=== PATIENT | female | born 1990 | race Caucasian/White ===

== ENCOUNTER 2017-12-15 11:06 | Emergency (ER) | payer OTHER, MEDICAID, SELFPAY ==
[2017-12-15 11:18] VITALS: BP 122/80; PULSE 66; RESP 15; TEMP 36.7; O2SAT 100; BMI 24.3
[2017-12-15 11:55] LABS: Bacteria Urine Many (>30); Squamous Epithelial Cell Urine 1-5 /HPF; WBC Urine 1-5/HPF (0-5/HPF)
[2017-12-15 11:56] LABS: Culture Indicated Urine Specimen Cultured
[2017-12-15 12:26] LABS: Add Manual Diff / Slide Review NO; Eosinophils Percent Auto 2.5 % (2-4); Hematocrit 38.4 % (36-46); Hemoglobin 13.1 g/dL (12.0-16.0); Lymphocytes Percent Auto 30.2 % (25-40); Mean Corpuscular Hemoglobin 29.7 PG (26-34); Mean Corpuscular Volume 87.5 fL (80-100); Monocytes Percent Auto 8.4 % (3-14); Neutrophils Absolute Auto 3100 /uL (3000-5900); Neutrophils Percent Auto 57.9 % (50-75); Platelet Count 301 X10^3/uL (150-400); Red Blood Cell Count 4.39 X10^6/uL (4.0-5.2); Red Cell Distribution Width 13.3 % (11.6-14.8); White Blood Cell Count 5.5 X10^3/uL (4.5-11.0)
--- NOTE | 2017-12-15 12:36 | DI.US.S_ITS ---
PROCEDURE: US PELVIC COMPLETE INDICATIONS: pelvic pain TECHNIQUE: Real-time scanning was performed of the pelvic organs, with image documentation. Additional endovaginal scanning was necessary due to incomplete visualization of the adnexal and endometrial structures by transabdominal scanning. COMPARISON: None. FINDINGS: Transabdominal scanning: Limited scanning through the kidneys shows no hydronephrosis. No pathologic free abdominal or pelvic fluid. Endovaginal scanning: Uterus: Uterus is normal in size at 6.7 x 4.2 x 5.5 cm. The endometrium measures 14 mm in combined thickness. No focal myometrial lesions are identified. Ovaries: The right ovary measures 1.4 x 2.4 x 2.6 cm. The left ovary measures 2.6 x 1.9 x 1.4 cm. Both ovaries are normal in size. No cystic or solid masses identified. A small heterogeneous collecting system the right ovary is present measuring up to 2.4 cm without internal vascularity or suspicious imaging characteristics. IMPRESSION: 1. Possible collapsing small hemorrhagic right ovarian cyst. Please correlate clinically. 2. Unremarkable left ovary and uterus. Dictated by: Fabrizio Wills M.D. on 12/15/2017 at 12:49 Approved by: Fabrizio Wills M.D. on 12/15/2017 at 12:50
--- NOTE | 2017-12-15 13:11 | ED_ITS ---
HPI - Female Genitourinary General Chief complaint: Urogenital-Female Stated complaint: CRAMPS THROUGH TO BACK Time Seen by Provider: 12/15/17 11:16 Source: patient Mode of arrival: ambulatory Limitations: no limitations History of Present Illness HPI Narrative: Patient complains of some suprapubic pain with radiation to her back. She denies provocation or palliation. She denies typical UTI symptoms such as dysuria, frequency or urgency. She has had no systemic symptoms such as fever or chills. She states the pain started in her central suprapubic region and radiated around to bilateral flanks, right greater than left. She denies vaginal bleeding or discharge MD Complaint: pelvic pain Onset (ago): day(s) Location: suprapubic Severity: mild Quality: Cramping Duration: improved Relieving factors: none Exacerbating factors: none Patient : No Related Data Previous Rx's Medication Instructions Recorded cephalexin [Keflex] 500 mg PO QID 10 Days #40 cap 12/15/17 Allergies Allergy/AdvReac Type Severity Reaction Status Date / Time No Known Drug Allergies Allergy Verified 12/15/17 11:17 Review of Systems Review of Systems All systems reviewed & are unremarkable except as noted in HPI and below Constitutional Denies chills, Denies fever(s), Denies lethargy and Denies weakness Eyes Denies change in vision, Denies eye discharge, Denies irritation and Denies loss of vision Cardiovascular Denies chest pain, Denies irregular heart rhythm, Denies lightheadedness, Denies palpitations and Denies orthopnea Gastrointestinal Gastrointestinal: Denies abdominal pain, Denies change in bowel habits, Denies diarrhea, Denies nausea and Denies vomiting Genitourinary Denies abnormal menses, Denies abnormal vaginal bleeding, Denies hematuria, Denies urinary frequency and Reports pelvic pain Musculoskeletal Denies back pain, Denies muscle weakness, Denies numbness and Denies tingling Integumentary/Breasts Denies pruritus, Denies erythema, Denies rash and Denies wounds Neurologic Denies loss of vision, Denies numbness, Denies tingling and Denies weakness Endocrine Denies palpitations Hematologic/Lymphatic Denies easy bruising PMFSH Past Medical History Attestation statement: The following information was validated with the patient. Psychiatric history: Reports no psych history [employer] history: Reports non-contributory Exam Narrative Exam Narrative: Otherwise healthy 27-year-old female is pleasant and in no obvious distress Const General: cooperative and well developed Nutritional Appearance: well nourished Orientation: alert, awake, oriented x3 and not confused [facility] Head: normocephalic and atraumatic Ears: external ears normal and TM's normal bilaterally Nose: external nose normal and No nasal discharge Face and sinus: sinuses nontender, face symmetric, no sinus tenderness and No dry mucous membranes Mouth: oral mucosae normal and moist mucous membranes Teeth and gingiva: dentition normal Throat: tonsils normal and uvula midline GI Inspection: normal to inspection and non-distended Palpation: soft, no hepatosplenomegaly, No guarding, No pulsatile mass and tender (Suprapubic) Auscultation: normal bowel sounds Back/Spine/Pelvis Back: CVA tenderness right Cervical Spine: cervical ROM normal and No pain with cervical ROM Thoracic/Lumbar Spine: thoracic and lumbar spine normal to inspection Skin General: no rashes or lesions noted, No jaundice and No petechiae MDM - Female Genitourinary MDM Narrative Medical decision making narrative: Urine POC was very convincing for infection. There is radiation primarily to right flank with CVA tenderness on exam. Additionally she had some discomfort in her suprapubic region and maybe a bit of radiation to the left. Ultrasound is significant for an ovarian cyst however the urine POC plus CVA tenderness with suggest treatment for pyelonephritis Differential Diagnosis Likely urinary tract infection and ovarian cyst Lab Data Attestation: I reviewed the patient's lab results. Result diagrams: 12/15/17 11:55 12/15/17 11:55 Lab Results 12/15/17 12/15/17 12/15/17 Range/Units 11:15 11:55 11:55 WBC 5.5 (4.5-11.0) X10^3/uL RBC 4.39 (4.0-5.2) X10^6/uL Hgb 13.1 (12.0-16.0) g/dL Hct 38.4 (36-46) % MCV 87.5 (80-100) fL MCH 29.7 (26-34) PG MCHC 34.0 (30-36) % RDW 13.3 (11.6-14.8) % Plt Count 301 (150-400) X10^3/uL Neut % (Auto) 57.9 (50-75) % Lymph % (Auto) 30.2 (25-40) % [place] % (Auto) 8.4 (3-14) % Eos % (Auto) 2.5 (2-4) % Baso % (Auto) 1.0 (0-2) % Neut # (Auto) 3100 (6986-1667) /uL Sodium 141 (137-145) mmol/L Potassium 4.3 (3.4-5.1) mmol/L Chloride 104.0 (98-107) mmol/L Carbon Dioxide 28.0 (22-32) mmol/L BUN 10.0 (7-17) mg/dL Creatinine 0.60 (0.52-1.04) mg/dL Estimated GFR > 60.0 (>60) mL/min BUN/Creatinine Ratio 16.7 (6-22) Glucose 105 H (70-100) mg/dL Calcium 9.4 (8.4-10.2) mg/dL Urine WBC 1-5/hpf (0-5/HPF) Ur Squamous Epith Cells 1-5 /hpf Urine Bacteria Many (>30) H (None) Ur Culture Indicated? Specimen cultured Micro UA Comment Not Reportable Imaging Data Pelvic US: Radiologist's impression: Collapsing right ovarian cyst Course Orders Ordered: ED Orders 12/15/17 11:15 Urine Culture Stat Urine Microscopic Stat 12/15/17 11:55 Basic Metabolic Panel Stat Complete Blood Count AUTO DIFF Stat 12/15/17 12:36 US pelvic complete Stat Last Vital Signs Temp 98.1 F 12/15/17 11:18 Pulse 73 12/15/17 13:40 Resp 16 12/15/17 13:40 BP 139/82 H 12/15/17 13:40 Pulse Ox 97 12/15/17 13:40 Discharge Plan Departure Patient Disposition: Home, Self-Care Clinical Impression: Urinary tract infection, Ruptured ovarian cyst Discharge Date/Time: 12/15/17 13:42 Interventions: ED Discharge Assessment Last Done: 12/15/17 13:39 Instructions: DI for Kidney Infection, DI for Ovarian Cyst Activity Restrictions/Additional Instructions: There is no evidence of an emergent or life threatening illness at this time, but follow up with your doctor in 1-2 days is recommended nonetheless to continue to rule out serious underlying causes of your symptoms. Please call the office for an appointment. Please return to the Emergency Department for any worsening or persistent symptoms. Please take medications as directed. Prescriptions: New cephalexin [Keflex] 500 mg capsule 500 mg PO QID 10 Days Qty: 40 RF: 0
[2017-12-15 13:40] VITALS: BP 139/82; PULSE 73; RESP 16; O2SAT 97
[2017-12-15 13:52] LABS: BUN Creatinine Ratio 16.7 (6-22); Calcium 9.4 mg/dL (8.4-10.2); Estimated Glomerular Filt Rate > 60.0 mL/min (>60); Glucose 105 mg/dL (70-100); HEMOLYSIS < 15 (0-50); Potassium 4.3 mmol/L (3.4-5.1); Sodium 141 mmol/L (137-145)
== END 2017-12-15 13:42 | disposition home or self-care (01) ==
PROVIDERS: Emergency Provider Emergency Medicine
DX: N39.0 Urinary tract infection, site not specified (principal); N83.209 Unspecified ovarian cyst, unspecified side
CPT/HCPCS: 36415; 76830; 76856; 80048; 81003; 81015; 81025; 85025; 87086; 87186; 94761; 99282; 99284

== ENCOUNTER 2018-01-02 20:04 | Emergency (ER) | payer OTHER, MEDICAID, SELFPAY ==
--- NOTE | 2018-01-02 20:10 | ED.ABDPAIN ---
HPI - Abdominal Pain General Chief Complaint: Abdominal Pain Stated Complaint: THINKS SHE HAS AN APPENDICITIS Time Seen by Provider: 01/02/18 20:09 Source: patient Mode of arrival: ambulatory Limitations: no limitations History of Present Illness HPI narrative: 27-year-old female here for evaluation of right lower quadrant abdominal pain. Patient states that she woke up yesterday morning with a pain in her lower abdomen which has progressed to right lower quadrant pain today. Recently finished a course of Keflex for ???a bladder in kidney infection ???this was diagnosed here in the emergency department when she came in for a ???ruptured cyst ???that she thinks was also on the right side. Patient is a not on control finish her menses 3 days ago. No prior abdominal surgeries. Did not have symptoms of a bladder or kidney infection during her last ER visit. She states that her presenting symptoms at that time have resolved. No vomiting. Related Data Home Medications Medication Instructions Recorded Confirmed No Known Home Medications 01/02/18 01/02/18 Allergies Allergy/AdvReac Type Severity Reaction Status Date / Time adhesive AdvReac Verified 01/02/18 20:32 nickel AdvReac Verified 01/02/18 20:32 Review of Systems Review of Systems All systems reviewed & are unremarkable except as noted in HPI and below Constitutional Denies chills, Denies fever(s), Denies lethargy and Denies weakness Cardiovascular Denies chest pain, Denies irregular heart rhythm, Denies lightheadedness, Denies palpitations, Denies dyspnea, Denies dyspnea on exertion and Denies orthopnea Respiratory Denies cough, Denies dyspnea, Denies dyspnea on exertion and Denies wheezing Gastrointestinal Gastrointestinal: Reports abdominal pain, Denies change in bowel habits, Denies diarrhea, Denies nausea and Denies vomiting Genitourinary Denies hematuria, Denies flank pain, Denies urinary incontinence and Denies urinary urgency Musculoskeletal Denies back pain, Denies muscle weakness, Denies numbness and Denies tingling Integumentary/Breasts Denies pruritus, Denies erythema, Denies rash and Denies wounds Neurologic Denies numbness, Denies tingling and Denies weakness Endocrine Denies palpitations Hematologic/Lymphatic Denies easy bruising Allergic/Immunologic Denies wheezing PFSH Social History (Reviewed 01/02/18 @ 20:23 by MARJORIE Tovar Smoking Status: Never smoker Exam Initial Vital Signs Initial Vital Signs: Vital Signs Temperature 98.5 F 01/02/18 20:12 Pulse Rate 70 01/02/18 20:12 Respiratory Rate 18 01/02/18 20:12 Blood Pressure 125/80 H 01/02/18 20:12 Pulse Oximetry 99 01/02/18 20:12 Const General: cooperative and well developed Nutritional Appearance: well nourished Orientation: alert, awake, oriented x3 and not confused Resp Effort & Inspection: normal respiratory effort, able to speak in complete sentences, no respiratory distress and no use of accessory muscles Auscultation: clear to auscultation bilaterally, no rales, no rhonchi and no wheezes Cardio Rate: regular rate Rhythm: regular rhythm Heart Sounds: no click, no gallops, no murmurs and no rubs Pulses: normal peripheral pulses GI Inspection: normal to inspection and non-distended Palpation: soft, No firm, No guarding and tender (Right lower quadrant) Back/Spine/Pelvis Back: No CVA tenderness Skin General: no rashes or lesions noted, No jaundice and No petechiae Neuro General: alert, oriented x3, gait normal and no focal motor deficits Speech: speech normal Extrem General: full ROM, no clubbing, cyanosis or edema, no pedal edema and no calf tenderness Course Orders Ordered: ED Orders 01/02/18 20:15 Basic Metabolic Panel Stat Complete Blood Count AUTO DIFF Stat Test Serum,Qual Stat 01/02/18 20:18 CT abdomen pelvis w con Stat Discontinued Medications Sodium Chloride (Normal Saline 0.9%) 1,000 mls @ 1,000 mls/hr IV BOLUS ONE Stop: 01/02/18 21:15 Last Admin: 01/02/18 20:36 Dose: 1,000 mls/hr Morphine Sulfate (Morphine) 4 mg IV NOW ONE Stop: 01/02/18 20:25 Last Admin: 01/02/18 20:36 Dose: 4 mg Ondansetron HCl (Zofran) 4 mg IV NOW ONE Stop: 01/02/18 20:26 Last Admin: 01/02/18 20:36 Dose: 4 mg Vital Signs - 8 hr 01/02/18 20:12 Temperature 98.5 F Pulse Rate 70 Respiratory Rate 18 Blood Pressure 125/80 H Pulse Oximetry 99 MDM - Abdominal Pain Lab Data Attestation: I reviewed the patient's lab results. Result diagrams: 01/02/18 20:15 01/02/18 20:15 Lab Results 01/02/18 01/02/18 01/02/18 Range/Units 20:15 20:15 20:15 WBC 7.9 (4.5-11.0) X10^3/uL RBC 4.70 (4.0-5.2) X10^6/uL Hgb 13.9 (12.0-16.0) g/dL Hct 40.9 (36-46) % MCV 87.2 (80-100) fL MCH 29.6 (26-34) PG MCHC 33.9 (30-36) % RDW 13.4 (11.6-14.8) % Plt Count 326 (150-400) X10^3/uL Neut % (Auto) 57.1 (50-75) % Lymph % (Auto) 31.6 (25-40) % [place] % (Auto) 8.7 (3-14) % Eos % (Auto) 1.7 L (2-4) % Baso % (Auto) 0.9 (0-2) % Neut # (Auto) 4500 (6758-4147) /uL Sodium 141 (137-145) mmol/L Potassium 4.0 (3.4-5.1) mmol/L Chloride 102 (98-107) mmol/L Carbon Dioxide 27 (22-32) mmol/L BUN 13 (7-17) mg/dL Creatinine 0.70 (0.52-1.04) mg/dL Estimated GFR > 60.0 (>60) mL/min BUN/Creatinine Ratio 18.6 (6-22) Glucose 93 (70-100) mg/dL Calcium 9.9 (8.4-10.2) mg/dL Serum , Qual Negative (Negative) Imaging Data CT scan - abdomen: Radiologist's impression: PROCEDURE: CT ABDOMEN PELVIS W CON INDICATIONS: Right lower quadrant abdominal pain concern for appendicitis TECHNIQUE: After the administration of intravenous contrast, 5 mm thick sections acquired from the diaphragm to the symphysis. 5 mm coronal and sagittal reformats were acquired. For radiation dose reduction, the following was used: automated exposure control, adjustment of mA and/or kV according to patient size. COMPARISON: None. FINDINGS: Image quality: Excellent. ABDOMEN: Lung bases: Lung bases are clear. Heart size is normal. Solid organs: Liver is normal in size and enhancement. Gallbladder appears normal. Biliary system is non dilated. Pancreas enhances normally. Spleen is normal in size and enhancement. No adrenal nodules. Kidneys demonstrate normal size and enhancement, without hydronephrosis. Peritoneum and bowel: Bowel loops demonstrate normal wall thickness and caliber. No free fluid or air. Nodes and vessels: No retroperitoneal or mesenteric adenopathy by size criteria. Aorta and inferior vena cava are normal in size. Miscellaneous: No ventral hernias. PELVIS: Genitourinary: Bladder wall thickness is normal. The posterior uterus demonstrates a mildly heterogeneous enhancement pattern, possibly from uterine fibroid. Miscellaneous: No inguinal hernias or adenopathy. Bones: No suspicious bony lesions. No vertebral body compression fractures. IMPRESSION: A normal or abnormal appendix is not seen. Note is made of mild heterogeneity of the posterior wall of the low uterine segment, potentially a manifestation of uterine fibroid. No adjacent free fluid found. A definite source of right lower quadrant pain is not seen. Dictated by: Jose J Mccormick M.D. on 01/02/2018 at 21:29 MDM Narrative Medical decision making narrative: Does not definitively show the appendix however there is no secondary signs of appendicitis. Patient is afebrile. Does not have an elevated white blood cell count. Her exam is not consistent with renal stone. test was negative. Did have a diagnosis of a ???ruptured ovarian cyst ???which she thinks was on the right side during her last ER visit here. Patient does have some guarding in her right lower quadrant however does not have any rebound. will hold on further work up for now. Pt was given return precautions. She expressed understanding and agreement with plan. Discharge Plan Departure Patient Disposition: Home, Self-Care Clinical Impression: Abdominal pain Instructions: DI for Abdominal Pain-Adult Activity Restrictions/Additional Instructions: Return to the ER for any new symptoms, worsening pain, fevers, vomiting or any other concerning symptoms. Call your primary care provider for a follow up. Prescriptions: No Action No Known Home Medications RF: 0 Stand Alone Forms: Work/School Restrictions
[2018-01-02 20:12] VITALS: BP 125/80; PULSE 70; RESP 18; TEMP 36.9; O2SAT 99; BMI 23.9
--- NOTE | 2018-01-02 20:18 | DI.CT.S_ITS ---
PROCEDURE: CT ABDOMEN PELVIS W CON INDICATIONS: Right lower quadrant abdominal pain concern for appendicitis TECHNIQUE: After the administration of intravenous contrast, 5 mm thick sections acquired from the diaphragm to the symphysis. 5 mm coronal and sagittal reformats were acquired. For radiation dose reduction, the following was used: automated exposure control, adjustment of mA and/or kV according to patient size. COMPARISON: None. FINDINGS: Image quality: Excellent. ABDOMEN: Lung bases: Lung bases are clear. Heart size is normal. Solid organs: Liver is normal in size and enhancement. Gallbladder appears normal. Biliary system is non dilated. Pancreas enhances normally. Spleen is normal in size and enhancement. No adrenal nodules. Kidneys demonstrate normal size and enhancement, without hydronephrosis. Peritoneum and bowel: Bowel loops demonstrate normal wall thickness and caliber. No free fluid or air. Nodes and vessels: No retroperitoneal or mesenteric adenopathy by size criteria. Aorta and inferior vena cava are normal in size. Miscellaneous: No ventral hernias. PELVIS: Genitourinary: Bladder wall thickness is normal. The posterior uterus demonstrates a mildly heterogeneous enhancement pattern, possibly from uterine fibroid. Miscellaneous: No inguinal hernias or adenopathy. Bones: No suspicious bony lesions. No vertebral body compression fractures. IMPRESSION: A normal or abnormal appendix is not seen. Note is made of mild heterogeneity of the posterior wall of the low uterine segment, potentially a manifestation of uterine fibroid. No adjacent free fluid found. A definite source of right lower quadrant pain is not seen. Dictated by: Jose J Mccormick M.D. on 01/02/2018 at 21:29 Approved by: Jose J Mccormick M.D. on 01/02/2018 at 21:31
[2018-01-02 20:29] LABS: Add Manual Diff / Slide Review NO; Basophils Percent Auto 0.9 % (0-2); Eosinophils Percent Auto 1.7 % (2-4); Hematocrit 40.9 % (36-46); Hemoglobin 13.9 g/dL (12.0-16.0); Lymphocytes Percent Auto 31.6 % (25-40); Mean Corpuscular HGB Conc 33.9 % (30-36); Mean Corpuscular Hemoglobin 29.6 PG (26-34); Mean Corpuscular Volume 87.2 fL (80-100); Monocytes Percent Auto 8.7 % (3-14); Neutrophils Absolute Auto 4500 /uL (3000-5900); Neutrophils Percent Auto 57.1 % (50-75); Platelet Count 326 X10^3/uL (150-400); Red Cell Distribution Width 13.4 % (11.6-14.8); White Blood Cell Count 7.9 X10^3/uL (4.5-11.0)
[2018-01-02 20:35] LABS: BUN Creatinine Ratio 18.6 (6-22); Blood Urea Nitrogen 13 mg/dL (7-17); Calcium 9.9 mg/dL (8.4-10.2); Carbon Dioxide 27 mmol/L (22-32); Chloride 102 mmol/L (98-107); Estimated Glomerular Filt Rate > 60.0 mL/min (>60); Glucose 93 mg/dL (70-100); HEMOLYSIS < 15 (0-50); Sodium 141 mmol/L (137-145)
[2018-01-02] MEDS: SODIUM CHLORIDE 0.9% 1,000 ML 1000 ML IV (20:36)
[2018-01-02] MEDS: ONDANSETRON 4 MG/2 ML INJ IV (20:36)
[2018-01-02] MEDS: MORPHINE 4 MG/ML INJ IV (20:36)
[2018-01-02 20:50] LABS: Pregnancy Test Serum,Qual Negative (Negative)
[2018-01-02 22:45] VITALS: BP 122/82; PULSE 60; RESP 16; O2SAT 98
== END 2018-01-02 22:46 | disposition home or self-care (01) ==
PROVIDERS: Emergency Provider Emergency Medicine
DX: R10.9 Unspecified abdominal pain (principal)
CPT/HCPCS: 36591; 74177; 80048; 81003; 84703; 85025; 96361; 96374; 96375; 99283; 99285; J2270; J2405; Q9967

== ENCOUNTER 2018-01-04 10:19 | Emergency (ER) | payer OTHER, MEDICAID, SELFPAY ==
[2018-01-04 10:50] VITALS: BP 120/79; PULSE 65; RESP 16; TEMP 36.6; O2SAT 100; BMI 23.9
--- NOTE | 2018-01-04 12:09 | ED_ITS ---
HPI - Abdominal Pain <Mechelle Antoine PA-C - Last Filed: 01/04/18 16:14> General Chief Complaint: Abdominal Pain Stated Complaint: POSSIBLE APPENDICITIS, WEAK, FEVER Time Seen by Provider: 01/04/18 10:46 Source: patient Mode of arrival: ambulatory Limitations: no limitations History of Present Illness HPI narrative: This 27-year-old female returns today due to persistent right lower quadrant pain along with feeling generalized weakness and somewhat faint at work today. She states that she felt warm and feverish and kind of achy all over about 90 min after she started work. She called her naturopathic physician who advised her to return for evaluation. She has had persistent right lower quadrant pain that she awoke with since Monday. It got worse Monday so she was seen and evaluated here for that. She states that the pain is about the same, she will have periods where it worsens for a few minutes at a time, then seems to go back to baseline level. She has tried to go about her usual activities despite the persistent pain. She has not been taking any medication for that. She states she has had decreased intake due to poor appetite. She has had some nausea but no vomiting. Thinks she has somewhat less fluid intake as well. She has not had any bowel movement changes. She has not had any new urinary symptoms or vaginal discharge. She denies any new chest pain, dyspnea, swelling in the extremities or calf pain. Denies other new symptoms on systems review Related Data Home Medications Medication Instructions Recorded Confirmed No Known Home Medications 01/02/18 01/04/18 Previous Rx's Medication Instructions Recorded ondansetron [Zofran ODT] 4 mg PO Q6H #6 tab 01/04/18 Allergies Allergy/AdvReac Type Severity Reaction Status Date / Time adhesive AdvReac Verified 01/02/18 20:32 nickel AdvReac Verified 01/02/18 20:32 Review of Systems <Mechelle Antoine PA-C - Last Filed: 01/04/18 16:14> Review of Systems All systems reviewed & are unremarkable except as noted in HPI and below <Rayray Grier DO - Last Filed: 01/04/18 18:06> Review of Systems All systems reviewed & are unremarkable except as noted in HPI and below Constitutional Denies chills, Denies fever(s), Denies lethargy and Denies weakness Eyes Denies change in vision, Denies eye discharge, Denies irritation and Denies loss of vision ENT Ears, Nose, Mouth, and Throat: Denies change in voice, Denies neck pain and Denies sore throat Cardiovascular Denies chest pain, Denies irregular heart rhythm, Denies lightheadedness, Denies palpitations, Denies dyspnea, Denies dyspnea on exertion and Denies orthopnea Respiratory Denies cough, Denies dyspnea, Denies dyspnea on exertion and Denies wheezing Gastrointestinal Gastrointestinal: Denies abdominal pain, Denies change in bowel habits, Denies diarrhea, Denies nausea and Denies vomiting Genitourinary Denies hematuria, Denies flank pain, Denies urinary incontinence and Denies urinary urgency Musculoskeletal Denies neck pain Integumentary/Breasts Denies pruritus, Denies erythema, Denies rash and Denies wounds Neurologic Denies confusion, Denies loss of vision and Denies weakness Psychiatric Denies anxiety, Denies confusion, Denies depression, Denies homicidal ideation and Denies suicidal ideation Endocrine Denies palpitations Hematologic/Lymphatic Denies easy bruising Allergic/Immunologic Denies wheezing Exam <Mechelle Antoine PA-C - Last Filed: 01/04/18 16:14> Narrative Exam Narrative: GENERAL APPEARANCE: Patient sitting comfortably, in no distress. HEENT: PERRL, EOMI, conjunctiva pink, no scleral icterus NECK: Supple, no masses LUNGS: Clear to auscultation bilaterally. HEART: Rate and rhythm regular, normal S1 and S2, no S3 or S4. ABDOMEN: Soft, nondistended, bowel sounds present x 4 quadrants, no masses palpable, no hepatosplenomegaly. She has moderate tenderness from the right midline to lower quadrant without guarding or rebound. No CVAT EXTREMITIES: No edema, no cyanosis. No calf tenderness DERMATOLOGIC: No jaundice or exanthem NEUROLOGIC: Alert and oriented with normal speech and coordination : Normal external genitalia, normal-appearing vaginal mucosa and cervix without lesions or discharge. Mild right adnexal tenderness on bimanual exam, no palpable mass, no uterine tenderness or CMT Initial Vital Signs Initial Vital Signs: Vital Signs Temperature 98 F 01/04/18 10:50 Pulse Rate 65 01/04/18 10:50 Respiratory Rate 16 01/04/18 10:50 Blood Pressure 120/79 01/04/18 10:50 Pulse Oximetry 100 01/04/18 10:50 <Rayray Grier DO - Last Filed: 01/04/18 18:06> Initial Vital Signs Initial Vital Signs: Vital Signs Temperature 98 F 01/04/18 10:50 Pulse Rate 65 01/04/18 10:50 Respiratory Rate 16 01/04/18 10:50 Blood Pressure 120/79 01/04/18 10:50 Pulse Oximetry 100 01/04/18 10:50 Course <Mechelle Antoine PA-C - Last Filed: 01/04/18 16:14> Hospital Course: Patient reported pain largely resolved after Toradol. She was tolerating oral fluids and crackers prior to discharge and reported nausea improved after eating. She states that she remembered she had not eaten today. She appears stable to follow up with her PCP tomorrow. Orders Ordered: ED Orders 01/04/18 12:22 Complete Blood Count AUTO DIFF Stat Comprehensive Metabolic Panel Stat Lipase Stat Discontinued Medications Sodium Chloride (Normal Saline 0.9%) 1,000 mls @ 1,000 mls/hr IV BOLUS ONE Stop: 01/04/18 13:20 Last Infusion: 01/04/18 14:35 Dose: 0 mls/hr Admin: 01/04/18 12:40 Dose: 1,000 mls/hr Ketorolac Tromethamine (Toradol) 30 mg IV NOW ONE Stop: 01/04/18 12:22 Last Admin: 01/04/18 12:40 Dose: 30 mg Ondansetron HCl (Zofran) 4 mg IV NOW ONE Stop: 01/04/18 12:22 Last Admin: 01/04/18 12:40 Dose: 4 mg Vital Signs - 8 hr 01/04/18 10:50 01/04/18 15:04 Temperature 98 F Pulse Rate 65 58 L Respiratory Rate 16 12 Blood Pressure 120/79 Blood Pressure [Left Arm] 113/66 Pulse Oximetry 100 100 <DO Juan Madison Last Filed: 01/04/18 18:06> Orders Ordered: ED Orders 01/04/18 12:22 Complete Blood Count AUTO DIFF Stat Comprehensive Metabolic Panel Stat Lipase Stat Discontinued Medications Sodium Chloride (Normal Saline 0.9%) 1,000 mls @ 1,000 mls/hr IV BOLUS ONE Stop: 01/04/18 13:20 Last Infusion: 01/04/18 14:35 Dose: 0 mls/hr Admin: 01/04/18 12:40 Dose: 1,000 mls/hr Ketorolac Tromethamine (Toradol) 30 mg IV NOW ONE Stop: 01/04/18 12:22 Last Admin: 01/04/18 12:40 Dose: 30 mg Ondansetron HCl (Zofran) 4 mg IV NOW ONE Stop: 01/04/18 12:22 Last Admin: 01/04/18 12:40 Dose: 4 mg Vital Signs - 8 hr 01/04/18 10:50 01/04/18 15:04 Temperature 98 F Pulse Rate 65 58 L Respiratory Rate 16 12 Blood Pressure 120/79 Blood Pressure [Left Arm] 113/66 Pulse Oximetry 100 100 MDM - Abdominal Pain <Mechelle Antoine PA-C - Last Filed: 01/04/18 16:14> Lab Data Attestation: I reviewed the patient's lab results. Result diagrams: 01/04/18 12:22 01/04/18 12:22 Lab Results 01/04/18 01/04/18 Range/Units 12:22 12:22 WBC 7.3 (4.5-11.0) X10^3/uL RBC 4.51 (4.0-5.2) X10^6/uL Hgb 13.5 (12.0-16.0) g/dL Hct 39.5 (36-46) % MCV 87.6 (80-100) fL MCH 29.9 (26-34) PG MCHC 34.1 (30-36) % RDW 13.1 (11.6-14.8) % Plt Count 314 (150-400) X10^3/uL Neut % (Auto) 64.8 (50-75) % Lymph % (Auto) 26.0 (25-40) % [place] % (Auto) 6.2 (3-14) % Eos % (Auto) 2.0 (2-4) % Baso % (Auto) 1.0 (0-2) % Neut # (Auto) 4800 (0721-9548) /uL Sodium 143 (137-145) mmol/L Potassium 3.8 (3.4-5.1) mmol/L Chloride 102 (98-107) mmol/L Carbon Dioxide 28 (22-32) mmol/L BUN 8 (7-17) mg/dL Creatinine 0.70 (0.52-1.04) mg/dL Estimated GFR > 60.0 (>60) mL/min BUN/Creatinine Ratio 11.4 (6-22) Glucose 93 (70-100) mg/dL Calcium 9.6 (8.4-10.2) mg/dL Total Bilirubin 0.5 (0.2-1.3) mg/dL AST 27 (14-36) IU/L ALT 31 (9-52) IU/L Alkaline Phosphatase 71 (38-126) U/L Total Protein 7.7 (6.3-8.2) g/dL Albumin 4.7 (3.5-5.0) g/dL Globulin 3.0 (1.7-4.1) g/dL Albumin/Globulin Ratio 1.6 (1.0-2.8) Lipase 54 (23-300) U/L Point of care urinalysis unremarkable, negative <Rayray Grier DO - Last Filed: 01/04/18 18:06> Lab Data Lab Results 01/04/18 01/04/18 Range/Units 12:22 12:22 WBC 7.3 (4.5-11.0) X10^3/uL RBC 4.51 (4.0-5.2) X10^6/uL Hgb 13.5 (12.0-16.0) g/dL Hct 39.5 (36-46) % MCV 87.6 (80-100) fL MCH 29.9 (26-34) PG MCHC 34.1 (30-36) % RDW 13.1 (11.6-14.8) % Plt Count 314 (150-400) X10^3/uL Neut % (Auto) 64.8 (50-75) % Lymph % (Auto) 26.0 (25-40) % [place] % (Auto) 6.2 (3-14) % Eos % (Auto) 2.0 (2-4) % Baso % (Auto) 1.0 (0-2) % Neut # (Auto) 4800 (2555-3882) /uL Sodium 143 (137-145) mmol/L Potassium 3.8 (3.4-5.1) mmol/L Chloride 102 (98-107) mmol/L Carbon Dioxide 28 (22-32) mmol/L BUN 8 (7-17) mg/dL Creatinine 0.70 (0.52-1.04) mg/dL Estimated GFR > 60.0 (>60) mL/min BUN/Creatinine Ratio 11.4 (6-22) Glucose 93 (70-100) mg/dL Calcium 9.6 (8.4-10.2) mg/dL Total Bilirubin 0.5 (0.2-1.3) mg/dL AST 27 (14-36) IU/L ALT 31 (9-52) IU/L Alkaline Phosphatase 71 (38-126) U/L Total Protein 7.7 (6.3-8.2) g/dL Albumin 4.7 (3.5-5.0) g/dL Globulin 3.0 (1.7-4.1) g/dL Albumin/Globulin Ratio 1.6 (1.0-2.8) Lipase 54 (23-300) U/L Discharge Plan Departure Patient Disposition: Home, Self-Care Clinical Impression: Abdominal pain, Dehydration Discharge Date/Time: 01/04/18 15:21 Interventions: ED Discharge Assessment Last Done: 01/04/18 15:20 Instructions: DI for Abdominal Pain-Adult Activity Restrictions/Additional Instructions: As we talked about, it is important that you follow-up with your PCP tomorrow for recheck, so please call for that appointment this afternoon and let them know you in the emergency room and need follow-up. Today your lab work is stable, and it does not appear likely that there is any acute surgical problem. I think your nausea and weakness is partly related to not keeping up on food and getting enough fluids. I have given you a prescription for the same antinausea medicine that we used in your IV which you can use as needed. As we talked about, please try to eat a small, bland snack every hour or so, i.e. crackers, applesauce, white rice, and continue to sip on clear fluids regularly. Return if you have any acutely worsening symptoms again in the interim Prescriptions: New ondansetron [Zofran ODT] 4 mg tablet,disintegrating 4 mg PO Q6H Qty: 6 RF: 0 No Action No Known Home Medications RF: 0 Referrals: Alisha Lopez ND [Other] <Rayray Grier, - Last Filed: 01/04/18 18:06> Cosign ED Attending Louis Attestation: I was immediately available in the department for consultation. Documentation has been reviewed. I agree with assessment and plan.
[2018-01-04] MEDS: SODIUM CHLORIDE 0.9% 1,000 ML 1000 ML IV (12:40)
[2018-01-04] MEDS: ONDANSETRON 4 MG/2 ML INJ IV (12:40)
[2018-01-04] MEDS: KETOROLAC 60 MG/2 ML VIAL 30 MG IV (12:40)
[2018-01-04 12:44] LABS: Add Manual Diff / Slide Review NO; Hematocrit 39.5 % (36-46); Hemoglobin 13.5 g/dL (12.0-16.0); Mean Corpuscular HGB Conc 34.1 % (30-36); Mean Corpuscular Hemoglobin 29.9 PG (26-34); Mean Corpuscular Volume 87.6 fL (80-100); Monocytes Percent Auto 6.2 % (3-14); Neutrophils Absolute Auto 4800 /uL (3000-5900); Neutrophils Percent Auto 64.8 % (50-75); Platelet Count 314 X10^3/uL (150-400); Red Blood Cell Count 4.51 X10^6/uL (4.0-5.2); Red Cell Distribution Width 13.1 % (11.6-14.8); White Blood Cell Count 7.3 X10^3/uL (4.5-11.0)
[2018-01-04 12:54] LABS: Alanine Aminotransferase 31 IU/L (9-52); Albumin 4.7 g/dL (3.5-5.0); Albumin Globulin Ratio 1.6 (1.0-2.8); Alkaline Phosphatase 71 U/L (38-126); Aspartate Aminotransferase 27 IU/L (14-36); BUN Creatinine Ratio 11.4 (6-22); Bilirubin Total 0.5 mg/dL (0.2-1.3); Blood Urea Nitrogen 8 mg/dL (7-17); Calcium 9.6 mg/dL (8.4-10.2); Carbon Dioxide 28 mmol/L (22-32); Chloride 102 mmol/L (98-107); Estimated Glomerular Filt Rate > 60.0 mL/min (>60); Glucose 93 mg/dL (70-100); HEMOLYSIS < 15 (0-50); Lipase 54 U/L (23-300); Potassium 3.8 mmol/L (3.4-5.1); Sodium 143 mmol/L (137-145); Total Protein 7.7 g/dL (6.3-8.2)
[2018-01-04 15:04] VITALS: BP 113/66; PULSE 58; RESP 12; O2SAT 100
== END 2018-01-04 15:21 | disposition home or self-care (01) ==
PROVIDERS: Emergency Provider Internal Medicine
DX: R10.9 Unspecified abdominal pain (principal); E86.0 Dehydration
CPT/HCPCS: 36591; 80053; 81003; 81025; 83690; 85025; 96361; 96374; 96375; 99283; J1885; J2405

== ENCOUNTER → 2018-06-11 07:32 | Outpatient (CLI) | payer OTHER, MEDICAID, SELFPAY ==
--- NOTE | 2018-06-11 07:34 | DI.US.S_ITS ---
PROCEDURE: US OB <= 14 WEEKS FETUS INDICATIONS: Dating and viability of OUTSIDE/PRIOR DATING DATA: Last menstrual period (LMP): Unknown. LMP-based estimated date of delivery (KAITLYNN): N./A.. First dating scan (date and location): 06/11/18. Estimated date of delivery (KAITLYNN) from first dating scan: 02/06/19. TECHNIQUE: Real-time scanning was performed of the fetus and maternal pelvic organs, with image documentation. Endovaginal scanning was also performed to better visualize the fetus and maternal ovaries. COMPARISON: [facility], US, US PELVIC COMPLETE, 12/15/2017, 12:47. FINDINGS: Embryo: Intrauterine gestational sac present with mean sac diameter 1.0 cm corresponding to 5 weeks 5 days. Yolk sac is identified. No pole at this time. Measurement variability in dating: +/- 4 weeks by LMP, +/- 7 days by mean sac diameter (use before 6 weeks gestation if crown-rump length not able to be measured), +/- 5 days by crown-rump length (up to 8 weeks 6 days gestation), +/- 7 days by crown-rump length (up to 13 weeks 6 days gestation). Maternal organs: Ovaries within normal limits, with 2.0 cm left corpus luteal cyst.. Limited images through the kidneys demonstrate no hydronephrosis. IMPRESSION: Intrauterine gestational sac present with mean diameter of 1.0 cm corresponding to 5 weeks 5 days. Yolk sac is present and no pole at this time. If indicated, followup ultrasound in 1 week could be performed to assess embryonic viability. Dictated by: Theron BORGES Interpreted: Kylee Guillermo MD on 06/11/2018 at 8:15 Approved by: Kylee Guillermo M.D. on 06/11/2018 at 16:23
== END ==
PROVIDERS: Visit Provider Obstetrics & Gynecology
DX: Z34.81 Encounter for supervision of other normal pregnancy, first trimester (principal); Z3A.01 Less than 8 weeks gestation of pregnancy
CPT/HCPCS: 76801; 76817

== ENCOUNTER → 2018-06-18 09:38 | Outpatient (CLI) | payer OTHER, MEDICAID, SELFPAY ==
[2018-06-18 10:58] LABS: Appearance Urine UA CLEAR; Bilirubin Urine UA NEGATIVE (NEGATIVE); Color Urine UA YELLOW; Glucose Urine UA NEGATIVE (Normal); Ketones Urine UA NEGATIVE (NEGATIVE); Leukocyte Esterase Urine UA NEGATIVE (NEGATIVE); Nitrite Urine UA NEGATIVE (Negative); Occult Blood Urine UA NEGATIVE (Negative); Protein Urine UA NEGATIVE (Negative); Specific Gravity Urine UA 1.015 (1.000-1.035); Urobilinogen Urine UA 0.2 E.U./dL (0.2); pH Urine UA 7.5 (4.5-8.0)
[2018-06-18 11:00] LABS: Add Manual Diff / Slide Review NO; Basophils Percent Auto 0.5 % (0-2); Eosinophils Percent Auto 0.9 % (2-4); Hemoglobin 13.4 g/dL (12.0-16.0); Lymphocytes Percent Auto 23.7 % (25-40); Mean Corpuscular HGB Conc 33.6 % (30-36); Mean Corpuscular Hemoglobin 29.5 PG (26-34); Mean Corpuscular Volume 87.9 fL (80-100); Monocytes Percent Auto 6.6 % (3-14); Neutrophils Absolute Auto 5000 /uL (3000-5900); Neutrophils Percent Auto 68.3 % (50-75); Platelet Count 319 X10^3/uL (150-400); Red Blood Cell Count 4.55 X10^6/uL (4.0-5.2); Red Cell Distribution Width 13.1 % (11.6-14.8); White Blood Cell Count 7.4 X10^3/uL (4.5-11.0)
[2018-06-18 11:43] LABS: Vitamin D 25 Hydroxy (D3) 29.5 ng/mL (30.0-100.0)
[2018-06-18 11:55] LABS: Hepatitis B Surface Antigen NEGATIVE s/c (NEGATIVE); Rubella Antibody IgG 34.8 IU/mL (>15)
[2018-06-18 11:58] LABS: Ferritin 34.3 ng/mL (6.27-137)
[2018-06-18 12:13] LABS: HIV 1 and 2 Antibody NEGATIVE (NEGATIVE); Hep C Virus Ab w/Reflex Quant NEGATIVE s/c (NEGATIVE)
[2018-06-20 14:21] LABS: RPR Screen Nonreactive (Nonreactive)
[2018-06-20 15:19] LABS: HSV 2 IGG AB < 0.90 index (< 0.90); HSV1IGG < 0.90 index (< 0.90)
== END ==
PROVIDERS: Visit Provider Obstetrics & Gynecology
DX: Z34.81 Encounter for supervision of other normal pregnancy, first trimester (principal); D64.9 Anemia, unspecified
CPT/HCPCS: 36415; 80055; 81003; 82306; 82728; 86695; 86696; 86703; 86787; 86803; 86850; 86900; 86901; 87077; 87086; 87186

== ENCOUNTER → 2018-06-22 06:49 | Outpatient (CLI) | payer OTHER, MEDICAID, SELFPAY ==
--- NOTE | 2018-06-22 06:51 | DI.US.S_ITS ---
PROCEDURE: US OB <= 14 WEEKS FETUS INDICATIONS: DATES OUTSIDE/PRIOR DATING DATA: Last menstrual period (LMP): Unavailable. LMP-based estimated date of delivery (KAITLYNN): Unavailable. First dating scan (date and location): 06/11/18. Estimated date of delivery (KAITLYNN) from first dating scan: 02/06/19, plus or -7 days, based on the first OB ultrasound identifying a gestational sac only. The current ultrasound provides a more accurate assessment of estimated gestational age due to visualization of the crown-rump length (9 mm) and this allows establishing the more accurate date of delivery projected to be centered on 02/09/19, plus or -5 days. TECHNIQUE: Real-time scanning was performed of the fetus and maternal pelvic organs, with image documentation. Endovaginal scanning was also performed to better visualize the fetus and maternal ovaries. COMPARISON: [facility], , OB <= 14 WEEKS FETUS, 06/11/2018, 8:48. FINDINGS: Embryo: There is a single living intrauterine gestation with crown-rump length correlating with a gestational age of 6 weeks 6 days, plus or -5 days. heart rate is identified at 133 beats per minute. Measurement variability in dating: +/- 4 weeks by LMP, +/- 7 days by mean sac diameter (use before 6 weeks gestation if crown-rump length not able to be measured), +/- 5 days by crown-rump length (up to 8 weeks 6 days gestation), +/- 7 days by crown-rump length (up to 13 weeks 6 days gestation). IMPRESSION: Viable intrauterine gestation is identified, with a more accurate assessment of date of delivery available as a result, based on the crown-rump length. The estimated date of delivery now is projected to be 02/09/19, plus or -5 days. Followup anatomic survey at approximately 21 weeks gestation is recommended. Dictated by: Jose J Mccormick M.D. on 06/22/2018 at 8:41 Approved by: Jose J Mccormick M.D. on 06/22/2018 at 8:47
== END ==
PROVIDERS: Visit Provider Obstetrics & Gynecology
DX: Z36.89 Encounter for other specified antenatal screening (principal); Z3A.01 Less than 8 weeks gestation of pregnancy
CPT/HCPCS: 76801; 76817

== ENCOUNTER → 2018-07-11 09:25 | Outpatient (CLI) | payer OTHER, MEDICAID, SELFPAY | PROVIDERS: Visit Provider Obstetrics & Gynecology | DX: Z34.01 Encounter for supervision of normal first pregnancy, first trimester (principal) | CPT/HCPCS: 87077; 87086; 87186 ==

== ENCOUNTER → 2018-09-13 09:53 | Outpatient (CLI) | payer OTHER, MEDICAID, SELFPAY ==
--- NOTE | 2018-09-13 09:57 | DI.US.S_ITS ---
PROCEDURE: US OB >= 14 WEEKS FETUS INDICATIONS: ANATOMY OUTSIDE/PRIOR DATING DATA: Last menstrual period (LMP): None available. LMP-based estimated date of delivery (KAITLYNN): Not applicable.. First dating scan (date and location): 06/11/[address] [facility]. Estimated date of delivery (KAITLYNN) from first dating scan: 02/06/19. TECHNIQUE: Real-time scanning was performed of the fetus, with image documentation and biometric measurements. Endovaginal scanning: None COMPARISON: [facility], , OB >= 14 WEEKS FETUS, 09/05/2018, 10:00. FINDINGS: General: A single living intrauterine gestation is present. Presentation: Transverse to vertex Placenta: Placental position is anterior fundal, without previa. Amniotic fluid index: 14 cm, normal range is 5-24 cm. heart rate: 133 beats per minute. Maternal cervical canal: 4.7 cm long. Normal lower limit is 2.5 cm. biometrics: Biparietal diameter: 4.4 cm, 19 week 2 days Head circumference: 16.5 cm, 19 weeks 2 days Abdominal circumference: 14 cm, 19 weeks 3 days Femur length: 2.8 cm, 18 weeks 5 days Estimated gestational age from initial scan: 19 week one day. Composite gestational age from present scan: 19 week one day Estimated weight and percentile: Not applicable Measurement variability for biometric dating: +/- 7 days from 14 weeks to 15 weeks 6 days gestation, +/- 10 days from 16 weeks to 21 weeks 6 days gestation, +/- 2 weeks from 22 weeks to 27 weeks 6 days gestation, +/- 3 weeks for 28 weeks gestation or later. weight reference: 4500 g or EFW >90/95% is considered macrosomia or large for gestational age. EFW <10% is small for gestational age. EFW 5% or less is considered intra-uterine growth restriction. Anatomic survey: Neuro: Ventricles are non-dilated at less than 10 mm. Cisterna magna is normal at 3-11 mm. Cerebellum is normal in size and morphology. Nuchal skin fold: Normal at less than 6 mm between 14-21 weeks gestational age. Face: Nose and lips, facial profile are normal. Spine: No evidence for spina bifida. Heart: 4-chambered heart is present, with normal ventricular outflow tracts. Diaphragm: Diaphragm is intact. Stomach: Left-sided stomach is present. Kidneys: No hydronephrosis. Normal is less than 5 mm in 2nd trimester, less than 7 mm in 3rd trimester. Cord: 3-vessel cord has orthotopic insertion. Bladder: Normal in size. Extremities: All 4 extremities identified. IMPRESSION: Single live intrauterine with fetus in transverse to vertex presentation. heart rate is 133 beats per minute. MISHA is 14 cm. Estimated gestational age is 19 week one day. Normal growth. Dictated by: Srikanth Donis M.D. on 09/13/2018 at 14:06 Approved by: Srikanth Donis M.D. on 09/13/2018 at 14:15
[2018-09-20 08:52] LABS: AFP, Serum 29.9 ng/mL; Calc Gestational Age 19.1; Cigarette Smoker N; Donated Egg NOT GIVEN; Donor Egg Age NOT GIVEN; Estriol, Free 1.43 ng/mL; Inhibin A, Dimeric 124 pg/mL; Maternal Weight 144 lbs; Number of Fetuses NOT GIVEN; Previous Pregnancy Down Syndro NOT GIVEN; hCG, MoM 0.83
== END ==
PROVIDERS: Visit Provider Obstetrics & Gynecology
DX: Z34.02 Encounter for supervision of normal first pregnancy, second trimester (principal); Z3A.19 19 weeks gestation of pregnancy
CPT/HCPCS: 36415; 76811; 82105; 82677; 84702; 86336

== ENCOUNTER 2018-10-14 10:20 | Observation (INO) | payer OTHER, MEDICAID, SELFPAY ==
[2018-10-14] MEDS: LACTATED RINGERS 1,000 ML 1000 ML IV ×2 (10:20→11:06)
[2018-10-14] MEDS: NIFEdipine 10 MG CAPSULE PO ×4 (10:50→11:54)
--- NOTE | 2018-10-14 10:56 | DI.US.S_ITS ---
PROCEDURE: US OB >= 14 WEEKS FETUS INDICATIONS: CONTRACTIONS/PREMATURE LABOR OUTSIDE/PRIOR DATING DATA: Last menstrual period (LMP): Unknown. LMP-based estimated date of delivery (KAITLYNN): Unknown. First dating scan (date and location): 06/11/18, [facility]. Estimated date of delivery (KAITLYNN) from first dating scan: 02/06/19. TECHNIQUE: Real-time scanning was performed of the fetus, with image documentation and biometric measurements. Endovaginal scanning: Yes COMPARISON: [facility], , OB >= 14 WEEKS FETUS, 09/13/2018, 10:36. FINDINGS: General: A single living intrauterine gestation is present. Presentation: Breech. Placenta: Placental position is anterior, without previa. Amniotic fluid index: 18.3 cm, normal range is 5-24 cm. heart rate: 127 beats per minute. Maternal cervical canal: 4.4 cm long. Normal lower limit is 2.5 cm. biometrics: Biparietal diameter: 5.39 cm, 22 weeks 3 days Head circumference: 20.71 cm, 22 weeks 6 days Abdominal circumference: 19.57 cm, 24 weeks 2 days Femur length: 4.08 cm, 23 weeks 2 days Estimated gestational age from initial scan: not applicable. Composite gestational age from present scan: 23 weeks 3 days Estimated weight and percentile: 614 g, 45th percentile Measurement variability for biometric dating: +/- 7 days from 14 weeks to 15 weeks 6 days gestation, +/- 10 days from 16 weeks to 21 weeks 6 days gestation, +/- 2 weeks from 22 weeks to 27 weeks 6 days gestation, +/- 3 weeks for 28 weeks gestation or later. weight reference: 4500 g or EFW >90/95% is considered macrosomia or large for gestational age. EFW <10% is small for gestational age. EFW 5% or less is considered intra-uterine growth restriction. Anatomic survey: A complete anatomic survey was not performed. Study was performed the tube premature labor. Previous anatomic survey performed 09/13/18 was unremarkable. The visualized structures today were unremarkable. IMPRESSION: 1. Cervix is long and closed. 2. Living second trimester IUP. 3. No abnormalities identified. Dictated by: Ryder Brown M.D. on 10/14/2018 at 12:31 Approved by: Ryder Brown M.D. on 10/14/2018 at 12:38
[2018-10-14] MEDS: INDOMETHACIN 25 MG CAPSULE 50 MG PO (11:06)
--- NOTE | 2018-10-14 11:21 | PM.OBHP.1 ---
OB HPI Date/Time Date of admission: 10/14/18 Date Patient Seen: 10/14/18 Time Patient Seen: 11:21 History of Present Condition Chief complaint: OBSERVATION : 3 Para: 0 Estimated Date of Delivery: 02/06/19 Estimated Gestational Age (weeks): 23 3 Narrative: Delma Middleton is a 28 year old female three para 0 who presents with a history of approximately 5 hr of cramping lower abdominal discomfort and pain. Patient has no GI or symptoms. She has had no fever chills. She has had no vaginal discharge or blood loss. The baby is moving. History of Present care: good care Dating criteria: LMP confirmed by 1st trimester US Ultrasounds: normal 1st trimester US and normal mid trimester US Obstetrical complications: none Medical complications: none Narrative: Patient with two prior miscarriages at 10 weeks No problems this patient Preadmission Labs Blood type: 0 (-) negative -: Antibody screen: negative, Cystic fibrosis screen: unknown, GBS status: unknown, HBsAG: negative, HIV: negative, HSV 1: negative, HSV 2: negative and RPR/VDLR: negative -: Chlamydia screen: detected (Negative) and Gonorrhea screen: detected (Negative) -: Rubella: immune and Varicella: immune HCT: 40 HCAB: negative PAP: Normal Sequential screen: Negative Prior (ies) History: 2 spontaneous abortions at 10 weeks Evaluation Evaluation Baseline heart rate: 120 Variability: Moderate (11-25) monitor accelerations: Present monitor decelerations: Absent Contraction Frequency (minutes): 1 Uterine Contraction Intensity: Mild Category of Tracing: I Cervical dilation (cm): 0 Cervical effacement (%): 80 station: 0 PFSH Medical History Dysplastic nevi (Chronic) Fibromyalgia (Chronic) Surgical History H/O local excision of skin lesion (Resolved) Social History Smoking Status: Never smoker Social History Smoking Status: Never smoker Meds Home Medications Medication Instructions Recorded Confirmed Type ondansetron [Zofran ODT] 4 mg PO Q6H #6 tab 05/31/18 11/12/18 Rx progesterone micronized 200 mg 200 mg PO DAILY #30 cap 06/08/18 06/18/18 Rx capsule 1 tab PO DAILY 06/18/18 06/18/18 History vitamin,calcium,kerdtdzf-kqgq-vwutb acid tablet nitrofurantoin macrocrystal 50 mg 50 mg PO DAILY #30 cap 07/11/18 07/11/18 Rx capsule breast pump #1 each 10/03/18 10/03/18 Rx hydrocodone 5 mg-acetaminophen 325 1 tab PO Q6H PRN #10 tab 10/04/18 Rx mg tablet Allergies Allergy/AdvReac Type Severity Reaction Status Date / Time adhesive AdvReac Verified 01/02/18 20:32 latex AdvReac Verified 06/18/18 09:35 nickel AdvReac Verified 01/02/18 20:32 Review of Systems Review of Systems All systems reviewed & are unremarkable except as noted in HPI and below Exam Const General: cooperative and healthy appearing HENPR Head: normal to inspection Ears: hearing grossly normal bilaterally Nose: external nose normal Face and sinus: normal facial exam Mouth: oral mucosae normal, lip normal, tongue normal and moist mucous membranes Teeth and gingiva: dentition normal Throat: posterior oropharynx normal Eyes General: appearance normal, both eyes and all related structures Neck Neck: normal visual inspection and full ROM Chest Chest: normal inspection of the chest and normal palpation of entire chest wall Breast inspection: normal inspection of the breasts and normal inspection of the axillae Breast Palpation: normal palpation of the breasts and normal palpation of the axillae Resp Effort & Inspection: normal respiratory effort Auscultation: clear to auscultation bilaterally Cardio Palpation: normal PMI Rate: regular rate Rhythm: regular rhythm Heart Sounds: S1 normal and S2 normal GI Inspection: normal to inspection Palpation: soft and no hepatosplenomegaly Percussion: normal to percussion Auscultation: normal bowel sounds OB/External & Speculum: external exam normal Manual OB Exam: dilated (Not dilated), effaced (Not effaced) 0% and station 0 Uterus Location (Fundal Height): 24 Presentation: bria breech Estimated Weight (lbs): 1 Back/Spine/Pelvis Thoracic/Lumbar Spine: thoracic and lumbar spine normal to inspection Skin General: no rashes or lesions noted Neuro General: alert, oriented x3, tone normal and moves all extremities Cognition: normal cognition Speech: speech normal Gait: normal gait Motor: muscle tone normal throughout Sensory Exam: no sensory deficits noted Extrem General: normal to inspection and normal exam except as noted Psych Appearance: grossly normal and well kempt Mental Status: mental status grossly normal Speech and Movement: speech and movement normal
[2018-10-14] MEDS: AMPICILLIN 2,000 MG in SODIUM CHLORIDE 0.9% 100 ML 200 ML IV ×3 (11:47→23:55)
[2018-10-14 12:04] LABS: Appearance Urine UA CLEAR; Bilirubin Urine UA NEGATIVE (NEGATIVE); Glucose Urine UA NEGATIVE (Negative); Ketones Urine UA NEGATIVE (NEGATIVE); Leukocyte Esterase Urine UA NEGATIVE (NEGATIVE); Nitrite Urine UA NEGATIVE (Negative); Occult Blood Urine UA NEGATIVE (Negative); Protein Urine UA NEGATIVE (Negative); Urobilinogen Urine UA 0.2 E.U./dL (0.2)
[2018-10-14 12:06] LABS: Add Manual Diff / Slide Review NO; Basophils Absolute Auto 0 /uL (0-100); Basophils Percent Auto 0.1 % (0-2); Eosinophils Absolute Auto 0 /uL (0-450); Eosinophils Percent Auto 0.1 % (2-4); Hematocrit 37.6 % (36-46); Hemoglobin 12.5 g/dL (12.0-16.0); Lymphocytes Absolute Auto 1600 /uL (1100-4500); Mean Corpuscular HGB Conc 33.2 % (30-36); Mean Corpuscular Hemoglobin 30.2 PG (26-34); Monocytes Absolute Auto 500 /uL (0-900); Monocytes Percent Auto 5.2 % (3-14); Neutrophils Absolute Auto 7800 /uL (1500-7000); Neutrophils Percent Auto 78.6 % (50-75); Platelet Count 289 X10^3/uL (150-400); Red Blood Cell Count 4.13 X10^6/uL (4.0-5.2); Red Cell Distribution Width 13.9 % (11.6-14.8); White Blood Cell Count 9.9 X10^3/uL (4.5-11.0)
[2018-10-14 12:13] LABS: Alanine Aminotransferase 26 IU/L (9-52); Albumin 3.8 g/dL (3.5-5.0); Albumin Globulin Ratio 1.2 (1.0-2.8); Alkaline Phosphatase 57 U/L (38-126); Aspartate Aminotransferase 19 IU/L (14-36); Bilirubin Total 0.5 mg/dL (0.2-1.3); Blood Urea Nitrogen 5 mg/dL (7-17); Calcium 9.2 mg/dL (8.4-10.2); Carbon Dioxide 23 mmol/L (22-32); Chloride 104 mmol/L (98-107); Estimated Glomerular Filt Rate > 60.0 mL/min (>60); Globulin 3.2 g/dL (1.7-4.1); Glucose 101 mg/dL (70-100); HEMOLYSIS < 15 (0-50); Magnesium 1.7 mg/dL (1.6-2.3); Potassium 4.4 mmol/L (3.4-5.1); Sodium 135 mmol/L (137-145)
[2018-10-14 12:27] LABS: Color Urine UA STRAW
[2018-10-14 12:43] LABS: Uric Acid 3.5 mg/dL (2.5-6.2)
[2018-10-14] MEDS: LACTATED RINGERS 1,000 ML 125 ML IV (13:22)
[2018-10-14 17:39] VITALS: BP 121/86
[2018-10-14 18:05] LABS: Add Manual Diff / Slide Review NO; Basophils Absolute Auto 0 /uL (0-100); Basophils Percent Auto 0.3 % (0-2); Eosinophils Absolute Auto 100 /uL (0-450); Eosinophils Percent Auto 0.5 % (2-4); Hematocrit 34.8 % (36-46); Hemoglobin 11.6 g/dL (12.0-16.0); Lymphocytes Absolute Auto 1900 /uL (1100-4500); Mean Corpuscular HGB Conc 33.3 % (30-36); Monocytes Absolute Auto 600 /uL (0-900); Monocytes Percent Auto 5.4 % (3-14); Neutrophils Absolute Auto 8500 /uL (1500-7000); Neutrophils Percent Auto 76.8 % (50-75); Platelet Count 293 X10^3/uL (150-400); Red Blood Cell Count 3.87 X10^6/uL (4.0-5.2); Red Cell Distribution Width 13.9 % (11.6-14.8); White Blood Cell Count 11.1 X10^3/uL (4.5-11.0)
[2018-10-14] MEDS: INDOMETHACIN 25 MG CAPSULE PO ×2 (18:05→23:55)
[2018-10-14] MEDS: ZOLPIDEM 5 MG TABLET PO (21:17)
[2018-10-15] MEDS: INDOMETHACIN 25 MG CAPSULE PO (05:52)
[2018-10-15] MEDS: AMPICILLIN 2,000 MG in SODIUM CHLORIDE 0.9% 100 ML 200 ML IV (05:52)
[2018-10-15] MEDS: LACTATED RINGERS 1,000 ML 125 ML IV (05:52)
[2018-10-15] MEDS: NIFEdipine 30 MG TAB ER PO (08:40)
--- NOTE | 2018-10-15 08:45 | PM.PN.1 ---
Subjective Date Patient Seen: 10/15/18 Time Patient Seen: 08:46 Interval history: It was admitted for premature contractions. Her cervix was thought to be faced but ultrasound obtained showed to be 4.8 cm. Baby was in a breech presentation and all parameters of the baby appeared to be normal. Because of contraction frequency with firm contractions which is every minute or so the patient was treated with the nifedipine regimen, indomethacin, ampicillin, and fluids. The contractions quickly abated. The patient was observed overnight and did well. Exam Vital Signs (past 8 hours): Fundus 23 cm Breech presentation No contractions currently Category one heart rate tracing with acceleration Objective Labs Result Diagrams: 10/14/18 17:55 10/14/18 11:45 Labs: Laboratory Results - last 24 hr 10/14/18 10/14/18 10/14/18 11:40 11:45 11:45 WBC 9.9 RBC 4.13 Hgb 12.5 Hct 37.6 MCV 91.0 MCH 30.2 MCHC 33.2 RDW 13.9 Plt Count 289 Neut % (Auto) 78.6 H Lymph % (Auto) 16.0 L [place] % (Auto) 5.2 Eos % (Auto) 0.1 L Baso % (Auto) 0.1 Neut # (Auto) 7800 H Lymph # (Auto) 1600 [place] # (Auto) 500 Eos # (Auto) 0 Baso # (Auto) 0 Sodium Potassium Chloride Carbon Dioxide BUN Creatinine Estimated GFR BUN/Creatinine Ratio Glucose Uric Acid Calcium Magnesium Total Bilirubin AST ALT Alkaline Phosphatase Total Protein Albumin Globulin Albumin/Globulin Ratio Urine Color Straw Urine Appearance Clear Urine pH 7.0 Ur Specific [place] 1.010 Urine Protein Negative Urine Glucose (UA) Negative Urine Ketones Negative Urine Occult Blood Negative Urine Nitrate Negative Urine Bilirubin Negative Urine Urobilinogen 0.2 Ur Leukocyte Esterase Negative Blood Type O Negative Antibody Screen Negative 10/14/18 10/14/18 11:45 17:55 WBC 11.1 H RBC 3.87 L Hgb 11.6 L Hct 34.8 L MCV 90.0 MCH 30.0 MCHC 33.3 RDW 13.9 Plt Count 293 Neut % (Auto) 76.8 H Lymph % (Auto) 17.0 L [place] % (Auto) 5.4 Eos % (Auto) 0.5 L Baso % (Auto) 0.3 Neut # (Auto) 8500 H Lymph # (Auto) 1900 [place] # (Auto) 600 Eos # (Auto) 100 Baso # (Auto) 0 Sodium 135 L Potassium 4.4 Chloride 104 Carbon Dioxide 23 BUN 5 L Creatinine 0.50 L Estimated GFR > 60.0 BUN/Creatinine Ratio 10.0 Glucose 101 H Uric Acid 3.5 Calcium 9.2 Magnesium 1.7 Total Bilirubin 0.5 AST 19 ALT 26 Alkaline Phosphatase 57 Total Protein 7.0 Albumin 3.8 Globulin 3.2 Albumin/Globulin Ratio 1.2 Urine Color Urine Appearance Urine pH Ur Specific [place] Urine Protein Urine Glucose (UA) Urine Ketones Urine Occult Blood Urine Nitrate Urine Bilirubin Urine Urobilinogen Ur Leukocyte Esterase Blood Type Antibody Screen Assessment & Plan Assessment & Plan narrative: 24 hr post onset of contractions Contractions now abated with the views of fluids, indomethacin, antibiotics, and calcium channel block Plan is discharge home on nifedipine
--- NOTE | 2018-10-15 08:49 | P.PN_ITS ---
Subjective Date Patient Seen: 10/15/18 Time Patient Seen: 08:46 Interval history: It was admitted for premature contractions. Her cervix was thought to be faced but ultrasound obtained showed to be 4.8 cm. Baby was in a breech presentation and all parameters of the baby appeared to be normal. Because of contraction frequency with firm contractions which is every minute or so the patient was treated with the nifedipine regimen, indomethacin, ampicillin, and fluids. The contractions quickly abated. The patient was observed overnight and did well. Exam Vital Signs (past 8 hours): Fundus 23 cm Breech presentation No contractions currently Category one heart rate tracing with acceleration Objective Labs Result Diagrams: 10/14/18 17:55 10/14/18 11:45 Labs: Laboratory Results - last 24 hr 10/14/18 10/14/18 10/14/18 11:40 11:45 11:45 WBC 9.9 RBC 4.13 Hgb 12.5 Hct 37.6 MCV 91.0 MCH 30.2 MCHC 33.2 RDW 13.9 Plt Count 289 Neut % (Auto) 78.6 H Lymph % (Auto) 16.0 L [place] % (Auto) 5.2 Eos % (Auto) 0.1 L Baso % (Auto) 0.1 Neut # (Auto) 7800 H Lymph # (Auto) 1600 [place] # (Auto) 500 Eos # (Auto) 0 Baso # (Auto) 0 Sodium Potassium Chloride Carbon Dioxide BUN Creatinine Estimated GFR BUN/Creatinine Ratio Glucose Uric Acid Calcium Magnesium Total Bilirubin AST ALT Alkaline Phosphatase Total Protein Albumin Globulin Albumin/Globulin Ratio Urine Color Straw Urine Appearance Clear Urine pH 7.0 Ur Specific [place] 1.010 Urine Protein Negative Urine Glucose (UA) Negative Urine Ketones Negative Urine Occult Blood Negative Urine Nitrate Negative Urine Bilirubin Negative Urine Urobilinogen 0.2 Ur Leukocyte Esterase Negative Blood Type O Negative Antibody Screen Negative 10/14/18 10/14/18 11:45 17:55 WBC 11.1 H RBC 3.87 L Hgb 11.6 L Hct 34.8 L MCV 90.0 MCH 30.0 MCHC 33.3 RDW 13.9 Plt Count 293 Neut % (Auto) 76.8 H Lymph % (Auto) 17.0 L [place] % (Auto) 5.4 Eos % (Auto) 0.5 L Baso % (Auto) 0.3 Neut # (Auto) 8500 H Lymph # (Auto) 1900 [place] # (Auto) 600 Eos # (Auto) 100 Baso # (Auto) 0 Sodium 135 L Potassium 4.4 Chloride 104 Carbon Dioxide 23 BUN 5 L Creatinine 0.50 L Estimated GFR > 60.0 BUN/Creatinine Ratio 10.0 Glucose 101 H Uric Acid 3.5 Calcium 9.2 Magnesium 1.7 Total Bilirubin 0.5 AST 19 ALT 26 Alkaline Phosphatase 57 Total Protein 7.0 Albumin 3.8 Globulin 3.2 Albumin/Globulin Ratio 1.2 Urine Color Urine Appearance Urine pH Ur Specific [place] Urine Protein Urine Glucose (UA) Urine Ketones Urine Occult Blood Urine Nitrate Urine Bilirubin Urine Urobilinogen Ur Leukocyte Esterase Blood Type Antibody Screen Assessment & Plan Assessment & Plan narrative: 24 hr post onset of contractions Contractions now abated with the views of fluids, indomethacin, antibiotics, and calcium channel block Plan is discharge home on nifedipine
--- NOTE | 2018-10-15 08:52 | P.DS_ITS ---
Discharge Providers Date of admission: 10/14/18 10:20 Discharge Date: 10/15/18 Discharge provider: Bobby Lopez MD Summary Date Patient Seen: 10/15/18 Time Patient Seen: 08:50 Procedures: Tocolytics therapy Hospital Course: The patient was admitted for premature contractions which were firm and every minute. Cervix was initially thought to be effaced. Examination with a vaginal probe ultrasound showed a cervical length of 4.8 cm an abdominal ultrasound showed a normal fetus in a breech presentation with normal fluid and anterior placenta. Patient was treated with IV fluids, nifedipine regimen, indomethacin, and ampicillin. Contractions quickly abated. She is observed overnight and did well. Discharge Diagnosis (1) Premature labor: Status: Acute Status at Discharge Cognitive/behavioral status at discharge: oriented Functional status at discharge: independent ambulation Overall status at discharge: patient is back to baseline Time Spent with Patient Total time spent providing and/or coordinating discharge services: Less than 30 minutes Objective Labs Result Diagrams: 10/14/18 17:55 10/14/18 11:45 Labs: Laboratory Results - last 24 hr 10/14/18 10/14/18 10/14/18 11:40 11:45 11:45 WBC 9.9 RBC 4.13 Hgb 12.5 Hct 37.6 MCV 91.0 MCH 30.2 MCHC 33.2 RDW 13.9 Plt Count 289 Neut % (Auto) 78.6 H Lymph % (Auto) 16.0 L [place] % (Auto) 5.2 Eos % (Auto) 0.1 L Baso % (Auto) 0.1 Neut # (Auto) 7800 H Lymph # (Auto) 1600 [place] # (Auto) 500 Eos # (Auto) 0 Baso # (Auto) 0 Sodium Potassium Chloride Carbon Dioxide BUN Creatinine Estimated GFR BUN/Creatinine Ratio Glucose Uric Acid Calcium Magnesium Total Bilirubin AST ALT Alkaline Phosphatase Total Protein Albumin Globulin Albumin/Globulin Ratio Urine Color Straw Urine Appearance Clear Urine pH 7.0 Ur Specific [place] 1.010 Urine Protein Negative Urine Glucose (UA) Negative Urine Ketones Negative Urine Occult Blood Negative Urine Nitrate Negative Urine Bilirubin Negative Urine Urobilinogen 0.2 Ur Leukocyte Esterase Negative Blood Type O Negative Antibody Screen Negative 10/14/18 10/14/18 11:45 17:55 WBC 11.1 H RBC 3.87 L Hgb 11.6 L Hct 34.8 L MCV 90.0 MCH 30.0 MCHC 33.3 RDW 13.9 Plt Count 293 Neut % (Auto) 76.8 H Lymph % (Auto) 17.0 L [place] % (Auto) 5.4 Eos % (Auto) 0.5 L Baso % (Auto) 0.3 Neut # (Auto) 8500 H Lymph # (Auto) 1900 [place] # (Auto) 600 Eos # (Auto) 100 Baso # (Auto) 0 Sodium 135 L Potassium 4.4 Chloride 104 Carbon Dioxide 23 BUN 5 L Creatinine 0.50 L Estimated GFR > 60.0 BUN/Creatinine Ratio 10.0 Glucose 101 H Uric Acid 3.5 Calcium 9.2 Magnesium 1.7 Total Bilirubin 0.5 AST 19 ALT 26 Alkaline Phosphatase 57 Total Protein 7.0 Albumin 3.8 Globulin 3.2 Albumin/Globulin Ratio 1.2 Urine Color Urine Appearance Urine pH Ur Specific [place] Urine Protein Urine Glucose (UA) Urine Ketones Urine Occult Blood Urine Nitrate Urine Bilirubin Urine Urobilinogen Ur Leukocyte Esterase Blood Type Antibody Screen Discharge Plan Discharge Plan Patient Disposition: Home Discharge Med Rec/Prescriptions Prescriptions: New nifedipine 30 mg tablet extended release 30 mg PO DAILY Qty: 30 RF: 3 Continued progesterone micronized 200 mg capsule 200 mg PO DAILY Qty: 30 RF: 1 hydrocodone-acetaminophen 5-325 mg tablet 1 tab PO Q6H PRN (Reason: pain) Qty: 10 RF: 0 nitrofurantoin macrocrystal [Macrodantin] 50 mg capsule 50 mg PO DAILY Qty: 30 RF: 6 prenat.vits,chu,gjy-kqnt-drmtx tablet 1 tab PO DAILY RF: 0 breast pump [Pump In Style Advanced] device .ROUTE .MEDSUPPLY Qty: 1 RF: 0 ondansetron [Zofran ODT] 4 mg tablet,disintegrating 4 mg PO Q6H Qty: 6 RF: 0 Follow up/Referrals: Marlene Hoskins MD [Family Provider] - 1 Week Provider Discharge Instructions Diet: Diet as Tolerated Activity: Modified bedrest Other treatments: Nifedipine for premature contraction Discharge Data Attending Provider: Bobby Lopez Admit Date/Time: 10/14/18 10:20
== END 2018-10-15 10:10 | disposition home or self-care (01) ==
PROVIDERS: Family Provider Obstetrics & Gynecology
DX: O60.02 Preterm labor without delivery, second trimester (principal); O26.22 Pregnancy care for patient with recurrent pregnancy loss, second trimester; Z3A.23 23 weeks gestation of pregnancy
CPT/HCPCS: 36415; 59025; 59050; 76811; 76817; 80053; 81003; 83735; 84550; 85025; 86850; 86900; 86901; 96360; 96361; G0378; G0379; J0290

== ENCOUNTER → 2018-10-18 15:28 | Outpatient (CLI) | payer OTHER, MEDICAID, SELFPAY ==
[2018-10-18 16:22] LABS: Fetal Fibronectin Negative
== END ==
PROVIDERS: Family Provider Obstetrics & Gynecology; Visit Provider Obstetrics & Gynecology
DX: O26.20 Pregnancy care for patient with recurrent pregnancy loss, unspecified trimester (principal); O60.00 Preterm labor without delivery, unspecified trimester
CPT/HCPCS: 82731

== ENCOUNTER → 2018-10-27 08:40 | Outpatient (CLI) | payer OTHER, MEDICAID, SELFPAY ==
[2018-10-27 10:30] LABS: Hematocrit 34.2 % (36-46); Hemoglobin 11.5 g/dL (12.0-16.0)
[2018-10-27 11:05] LABS: GTT (PREG) 1 Hour PP 50gm Dose 95 mg/dL (76-139)
== END ==
PROVIDERS: Family Provider Obstetrics & Gynecology; Visit Provider Obstetrics & Gynecology
DX: Z34.02 Encounter for supervision of normal first pregnancy, second trimester (principal); Z67.91 Unspecified blood type, Rh negative
CPT/HCPCS: 36415; 82950; 85014; 85018; 86850

== ENCOUNTER 2018-10-28 09:33 | Observation (INO) | payer OTHER, MEDICAID, SELFPAY ==
[2018-10-28 10:13] LABS: RBC Urine None Seen (0-5/HPF); WBC Urine None Seen (0-5/HPF)
[2018-10-28 10:15] LABS: Appearance Urine UA CLEAR; Bilirubin Urine UA NEGATIVE (NEGATIVE); Color Urine UA YELLOW; Glucose Urine UA NEGATIVE (Negative); Ketones Urine UA NEGATIVE (NEGATIVE); Leukocyte Esterase Urine UA NEGATIVE (NEGATIVE); Nitrite Urine UA NEGATIVE (Negative); Occult Blood Urine UA NEGATIVE (Negative); Protein Urine UA NEGATIVE (Negative); Specific Gravity Urine UA 1.015 (1.000-1.035); Urobilinogen Urine UA 0.2 E.U./dL (0.2)
[2018-10-28 10:25] LABS: Bacteria Urine Few (2-10); Culture Indicated Urine Cult Not Indicated; Squamous Epithelial Cell Urine 10-30 /HPF
[2018-10-28] MEDS: NIFEdipine 30 MG TAB ER PO (10:44)
[2018-10-28] MEDS: NIFEdipine 10 MG CAPSULE PO ×4 (11:03→12:19)
== END 2018-10-28 13:55 | disposition home or self-care (01) ==
LOC: LABOR 09:35
PROVIDERS: Admitting Provider Obstetrics & Gynecology; Family Provider Obstetrics & Gynecology; Visit Provider Obstetrics & Gynecology
DX: O60.00 Preterm labor without delivery, unspecified trimester (principal); O26.22 Pregnancy care for patient with recurrent pregnancy loss, second trimester; Z3A.25 25 weeks gestation of pregnancy
CPT/HCPCS: 59025; 59050; 81001; G0378; G0379

== ENCOUNTER → 2018-10-31 09:04 | Outpatient (CLI) | payer OTHER, MEDICAID, SELFPAY ==
[2018-10-31 09:50] LABS: Fetal Fibronectin Negative
== END ==
PROVIDERS: Family Provider Obstetrics & Gynecology; Visit Provider Obstetrics & Gynecology
DX: O47.9 False labor, unspecified (principal)
CPT/HCPCS: 82731

== ENCOUNTER 2018-11-17 01:46 | Outpatient (CLI) | payer OTHER, MEDICAID, SELFPAY ==
[2018-11-17 02:12] LABS: Appearance Urine UA CLEAR; Bacteria Urine None Seen; Bilirubin Urine UA NEGATIVE (NEGATIVE); Color Urine UA YELLOW; Glucose Urine UA NEGATIVE (Negative); Ketones Urine UA NEGATIVE (NEGATIVE); Leukocyte Esterase Urine UA NEGATIVE (NEGATIVE); Nitrite Urine UA NEGATIVE (Negative); Occult Blood Urine UA NEGATIVE (Negative); Protein Urine UA NEGATIVE (Negative); RBC Urine None Seen (0-5/HPF); Specific Gravity Urine UA <=1.005 (1.000-1.035); Urobilinogen Urine UA 0.2 E.U./dL (0.2); WBC Urine None Seen (0-5/HPF); pH Urine UA 6.5 (4.5-8.0)
[2018-11-17 02:25] LABS: Squamous Epithelial Cell Urine 0-1 /HPF (0-5/HPF)
[2018-11-17 02:26] LABS: Culture Indicated Urine Cult Not Indicated
[2018-11-17] MEDS: TERBUTALINE 1 MG/ML VIAL 0.25 MG SUBCUT (02:55)
== END 2018-11-17 03:00 | disposition home or self-care (01) ==
LOC: OB 11-20 08:01
PROVIDERS: Family Provider Obstetrics & Gynecology; Visit Provider Obstetrics & Gynecology
DX: O60.14X0 Preterm labor third trimester with preterm delivery third trimester, not applicable or unspecified (principal); Z3A.28 28 weeks gestation of pregnancy
CPT/HCPCS: 59025; 59050; 81001; 96372; G0378; G0379

== ENCOUNTER → 2018-12-04 15:41 | Outpatient (REF) | payer OTHER, MEDICAID, SELFPAY ==
[2018-12-04 16:51] LABS: Fetal Fibronectin Negative
== END ==
LOC: LAB 15:41
PROVIDERS: Family Provider Obstetrics & Gynecology; Visit Provider Obstetrics & Gynecology
DX: O47.03 False labor before 37 completed weeks of gestation, third trimester (principal)
CPT/HCPCS: 82731

== ENCOUNTER → 2018-12-19 10:57 | Outpatient (CLI) | payer OTHER, MEDICAID, SELFPAY ==
[2018-12-19 12:27] LABS: Fetal Fibronectin Negative
== END ==
PROVIDERS: Family Provider Obstetrics & Gynecology; Visit Provider Obstetrics & Gynecology
DX: O60.00 Preterm labor without delivery, unspecified trimester (principal)
CPT/HCPCS: 82731

== ENCOUNTER 2018-12-27 15:12 | Outpatient (CLI) | payer OTHER, MEDICAID, SELFPAY ==
[2018-12-27] MEDS: NIFEdipine 10 MG CAPSULE PO (16:37)
[2018-12-27] MEDS: NIFEdipine 30 MG TAB ER PO (16:52)
== END 2018-12-27 17:03 | disposition home or self-care (01) ==
LOC: LABOR 15:15 → OB 01-01 13:06
PROVIDERS: Family Provider Obstetrics & Gynecology; Visit Provider Obstetrics & Gynecology
DX: O60.03 Preterm labor without delivery, third trimester (principal); Z3A.38 38 weeks gestation of pregnancy
CPT/HCPCS: 59025; 59050; G0378; G0379

== ENCOUNTER → 2019-01-02 14:36 | Outpatient (CLI) | payer OTHER, MEDICAID, SELFPAY ==
[2019-01-03 18:10] LABS: Strep Grp B PCR NEG for Grp B Strep
== END ==
PROVIDERS: Family Provider Obstetrics & Gynecology; Visit Provider Obstetrics & Gynecology
DX: Z34.03 Encounter for supervision of normal first pregnancy, third trimester (principal)
CPT/HCPCS: 87653

== ENCOUNTER 2019-01-25 11:19 | Outpatient (CLI) | payer OTHER, MEDICAID, SELFPAY ==
--- NOTE | 2019-01-25 12:22 | PM.OBTRLD ---
Visit Information Visit Information Date of evaluation: 01/25/19 Primary OB Provider: Marlene Hoskins On-call OB Provider: Eli Valentine Reason for Evaluation: Yes rupture of membranes Comments/Additional reasons for admission: Headache Vital Signs Vital Signs: Blood pressure 117/77, pulse of 82 [facility] Medical History (Updated 01/25/19 @ 12:25 by Eli Valentine MD) Dysplastic nevi (Chronic) Fibromyalgia (Chronic) Social History Smoking Status: Never smoker Evaluation Evaluation Baseline heart rate: 120 Variability: Moderate (11-25) monitor accelerations: Present monitor decelerations: Absent Contraction Frequency (minutes): 5 Uterine Contraction Intensity: Mild Category of Tracing: I Non-invasive Membranes Rupture Test: negative Diagnosis, Plan/Disposition Final Diagnosis (1) 38 weeks gestation of : Current Visit: Yes Status: Acute (2) Headache: Current Visit: Yes Status: Acute Plan/Disposition Plan: Patient who was concerned about headache and possible rupture membranes. No evidence of preeclampsia. AmniSure negative. Patient was discharged home to follow up at her routine OB appointment. OB Disposition: home
--- NOTE | 2019-01-25 12:25 | P.TNLD_ITS ---
Visit Information Visit Information Date of evaluation: 01/25/19 Primary OB Provider: Marlene Hoskins On-call OB Provider: Eli Valentine Reason for Evaluation: Yes rupture of membranes Comments/Additional reasons for admission: Headache Vital Signs Vital Signs: Blood pressure 117/77, pulse of 82 [facility] Medical History (Updated 01/25/19 @ 12:25 by Eli Valentine MD) Dysplastic nevi (Chronic) Fibromyalgia (Chronic) Social History Smoking Status: Never smoker Evaluation Evaluation Baseline heart rate: 120 Variability: Moderate (11-25) monitor accelerations: Present monitor decelerations: Absent Contraction Frequency (minutes): 5 Uterine Contraction Intensity: Mild Category of Tracing: I Non-invasive Membranes Rupture Test: negative Diagnosis, Plan/Disposition Final Diagnosis (1) 38 weeks gestation of : Current Visit: Yes Status: Acute (2) Headache: Current Visit: Yes Status: Acute Plan/Disposition Plan: Patient who was concerned about headache and possible rupture membranes. No evidence of preeclampsia. AmniSure negative. Patient was discharged home to follow up at her routine OB appointment. OB Disposition: home
== END 2019-01-25 12:32 | disposition home or self-care (01) ==
LOC: LABOR 11:53 → OB 01-29 14:34
PROVIDERS: PCP Obstetrics & Gynecology; Visit Provider Obstetrics & Gynecology
DX: O26.893 Other specified pregnancy related conditions, third trimester (principal); R51 Headache; Z3A.38 38 weeks gestation of pregnancy
CPT/HCPCS: 59025; 84112; G0378; G0379

== ENCOUNTER 2019-02-04 20:53 | Observation (INO) | payer OTHER, MEDICAID, SELFPAY ==
[2019-02-04] MEDS: miSOPROStol 25 MCG TABLET VAG (22:15)
== END 2019-02-05 09:53 | disposition home or self-care (01) ==
PROVIDERS: Admitting Provider Obstetrics & Gynecology; Visit Provider Obstetrics & Gynecology
DX: Z34.83 Encounter for supervision of other normal pregnancy, third trimester (principal)
CPT/HCPCS: 59025; 59050; 59200; G0378; G0379

== ENCOUNTER 2019-02-05 17:28 | Inpatient (IN) | payer OTHER, MEDICAID, SELFPAY ==
[2019-02-05 18:39] VITALS: BP 120/76
[2019-02-05] MEDS: LACTATED RINGERS 1,000 ML 100 ML IV (19:20)
[2019-02-05] MEDS: DINOPROSTONE VAG (CERVIDIL) 10 MG VAG (19:46)
[2019-02-05 20:58] LABS: Add Manual Diff / Slide Review NO; Basophils Absolute Auto 100 /uL (0-100); Basophils Percent Auto 0.5 % (0-2); Eosinophils Absolute Auto 100 /uL (0-450); Eosinophils Percent Auto 0.7 % (2-4); Hematocrit 38.2 % (36-46); Hemoglobin 12.7 g/dL (12.0-16.0); Lymphocytes Absolute Auto 1900 /uL (1100-4500); Lymphocytes Percent Auto 16.8 % (25-40); Mean Corpuscular HGB Conc 33.2 % (30-36); Mean Corpuscular Hemoglobin 30.2 PG (26-34); Monocytes Absolute Auto 700 /uL (0-900); Monocytes Percent Auto 6.4 % (3-14); Neutrophils Absolute Auto 8400 /uL (1500-7000); Neutrophils Percent Auto 75.6 % (50-75); Platelet Count 272 X10^3/uL (150-400); Red Blood Cell Count 4.19 X10^6/uL (4.0-5.2)
[2019-02-05] MEDS: ZOLPIDEM 5 MG TABLET PO (21:13)
[2019-02-06] MEDS: LACTATED RINGERS 1,000 ML 100 ML IV (06:25)
[2019-02-06] MEDS: IBUPROFEN 600 MG TABLET PO ×2 (09:50→22:28)
[2019-02-06] MEDS: RHO(D) IMMUNE GLOBULIN 1,500 UNIT SYRINGE 1500 UNIT IM (21:15)
[2019-02-07 06:56] LABS: Hematocrit 34.5 % (36-46); Hemoglobin 11.5 g/dL (12.0-16.0)
[2019-02-07] MEDS: DOCUSATE 250 MG CAPSULE PO (09:40)
[2019-02-07] MEDS: PRENATAL VIT,CALC/IRON/FOLIC 1 TABLET 1 TAB PO (09:40)
[2019-02-07] MEDS: IBUPROFEN 600 MG TABLET PO (09:41)
[2019-02-07 13:01] VITALS: BP 114/72; PULSE 71; RESP 17; TEMP 36.8
--- NOTE | 2019-03-06 15:29 | P.HPOB_ITS ---
OB HPI Date/Time Date of admission: 02/06/19 Date Patient Seen: 02/06/19 Time Patient Seen: 06:30 History of Present Condition Chief complaint: OBSERVATION OF LABOR : 1 Para: 0 Estimated Date of Delivery: 02/06/19 Estimated Gestational Age (weeks): 40 Narrative: Delma Middleton is a 28 year old female 3 para 0 at 40 weeks gestation in active labor History of Present care: good care, initiated at week # (9) and number of visits (14) Dating criteria: LMP confirmed by 1st trimester US Ultrasounds: normal 1st trimester US and normal mid trimester US Obstetrical complications: labor Medical complications: none Preadmission Labs Blood type: 0 (-) negative -: Antibody screen: negative, GBS status: negative, HBsAG: negative, HIV: negative, HSV 1: negative, HSV 2: negative and RPR/VDLR: negative -: Chlamydia screen: not detected and Gonorrhea screen: not detected -: Rubella: immune and Varicella: immune HCT: 34.2 HCAB: negative PAP: Normal Quad screen: Normal Urine: E. coli 1 hr GTT: 95 Prior (ies) History: 2 SAB Evaluation Evaluation Baseline heart rate: 130 Variability: Moderate (11-25) monitor accelerations: Present monitor decelerations: Absent Contraction Frequency (minutes): 3 Uterine Contraction Intensity: Moderate Category of Tracing: I Cervical dilation (cm): 1 Cervical effacement (%): 75 station: -2 Laboratory results: Laboratory Tests 02/05/19 02/05/19 02/07/19 19:20 19:20 06:46 WBC 11.0 RBC 4.19 Hgb 12.7 11.5 L Hct 38.2 34.5 L MCV 91.0 MCH 30.2 MCHC 33.2 RDW 14.0 Plt Count 272 Neut % (Auto) 75.6 H Lymph % (Auto) 16.8 L [place] % (Auto) 6.4 Eos % (Auto) 0.7 L Baso % (Auto) 0.5 Neut # (Auto) 8400 H Lymph # (Auto) 1900 [place] # (Auto) 700 Eos # (Auto) 100 Baso # (Auto) 100 Blood Type O Negative Antibody Screen Positive Antibody Identification Anti-D Maternal Bleed 02/07/19 06:46 WBC RBC Hgb Hct MCV MCH MCHC RDW Plt Count Neut % (Auto) Lymph % (Auto) [place] % (Auto) Eos % (Auto) Baso % (Auto) Neut # (Auto) Lymph # (Auto) [place] # (Auto) Eos # (Auto) Baso # (Auto) Blood Type Antibody Screen Antibody Identification Maternal Bleed Negative [facility] Medical History (Updated 01/25/19 @ 12:25 by Eli Valentine MD) Dysplastic nevi (Chronic) Fibromyalgia (Chronic) Social History Smoking Status: Never smoker Meds Home Medications Medication Instructions Recorded Confirmed Type 1 tab PO DAILY 06/18/18 02/06/19 History vitamin,calcium,wogbpwip-mzwd-peqse acid tablet breast pump #1 each 10/03/18 02/06/19 Rx cephalexin 500 mg capsule 500 mg PO QID #28 cap 03/04/19 Rx Allergies Allergy/AdvReac Type Severity Reaction Status Date / Time adhesive AdvReac Verified 01/02/18 20:32 latex AdvReac Verified 06/18/18 09:35 nickel AdvReac Verified 01/02/18 20:32 Exam Vital Signs (past 8 hours): Generally: Moderate distress secondary to contractions Lungs: Clear to auscultation bilaterally Cardiovascular: Regular rate and rhythm Fundal height: 39 cm Estimated weight: 7 lb Extremities: Negative [place], trace edema Objective Labs Result Diagrams: 02/07/19 06:46 Assessment and Plan Assessment and Plan Assessment and Plan narrative: Assessment: 28-year-old 3 para 0 at 39-,6/7 weeks gestation in labor Status post spontaneous rupture of membranes with clear amniotic fluid Plan: Epidural as necessary Expected management to spontaneous vaginal delivery
--- NOTE | 2019-03-06 15:45 | PM.OBPRVD ---
Delivery date: 02/06/19 Intrapartal events: None Cervical ripening method: per Cervidil protocol Induction method: none Delivery monitor: external FHT and external uterine Route of delivery: Episiotomy description: None L&D Laceration Description: None Estimated blood loss (mL): 200 Anesthesia type: Epidural Complications: None Narrative: Patient complete and pushed for 40 min. At 7:32 a.m. a live female delivered spontaneously over an intact perineum. No nuchal cord. The remainder of the body delivered without difficulty and was placed on mom's abdomen. The cord was double clamped and cut. Cord bloods were obtained. The placenta delivered intact with a 3 vessel cord at 7:41 a.m.. Weight 7 lb 1.8 oz. No lacerations. Apgars 9 at 1 min and 9 at 5 min. Estimated blood loss 200 cc. Epidural analgesia. Mom and infant stable to recovery. Plan for aftercare: To routine care
--- NOTE | 2019-03-06 15:50 | P.DS_ITS ---
Discharge Providers Date of admission: 02/05/19 17:28 Discharge Date: 02/07/19 Consults: 02/06/19 09:44 Consult to [place] Supervisor Routine Comment: Discharge provider: Marlene Hoskins MD Summary Date Patient Seen: 02/07/19 Time Patient Seen: 13:30 Procedures: Spontaneous vaginal delivery Epidural analgesia Hospital Course: Patient is a 28-year-old 3 para 0 who presented at 39 and 6 7th weeks gestation after cervical ripening the day before. She was in active labor. She received an epidural for pain management. She progressed to complete dilation and had a spontaneous vaginal delivery. Her course was Peripartum Data Infant Delivery Method: Natural Vaginal Laceration description: None Episiotomy description: None Procedures: Epidural analgesia Spontaneous vaginal delivery complications: none Status at Discharge Cognitive/behavioral status at discharge: oriented Functional status at discharge: independent ambulation Overall status at discharge: patient is progressing back to baseline Time Spent with Patient Total time spent providing and/or coordinating discharge services: Less than 30 minutes Objective Labs Result Diagrams: 02/07/19 06:46 Discharge Plan Discharge Plan Patient Disposition: Home Discharge comment: Call with fever, chills or bleeding vaginally more than a pad in an hour Discharge Med Rec/Prescriptions Prescriptions: Continued prenat.vits,chu,hzy-nnfg-oxkel tablet 1 tab PO DAILY RF: 0 No Action cephalexin 500 mg capsule 500 mg PO QID Qty: 28 RF: 0 breast pump [Pump In Style Advanced] device .ROUTE .MEDSUPPLY Qty: 1 RF: 0 Follow up/Referrals: Marlene Hoskins MD [Physician] - 6 Weeks (Pt will call for 6th week appointment) Provider Discharge Instructions Diet: Regular Activity: No intercourse Skin/Wound/Dressing Care Report to your healthcare provider any signs of infection, such as:: chills, fever, increased pain and unusual drainage Visit Report/Discharge Packet Instructions: DI for Labor and Delivery, Vaginal Stand Alone Forms: Discharge: Care Visit Report Forms: Stroke Signs & Symptoms Discharge Data Attending Provider: Marlene Hoskins Admit Date/Time: 02/05/19 17:28 Discharges patient from system. Discharge Date/Time: 02/07/19 13:40
== END 2019-02-07 13:40 | disposition home or self-care (01) | DRG 807 ==
PROVIDERS: Admitting Provider Obstetrics & Gynecology; Visit Provider Obstetrics & Gynecology
DX: O80 Encounter for full-term uncomplicated delivery (principal); Z37.0 Single live birth; Z3A.40 40 weeks gestation of pregnancy
CPT/HCPCS: 01967; 36415; 59025; 59050; 59200; 59400; 85014; 85018; 85025; 85461; 86850; 86870; 86900; 86901; G0378; G0379; J2790

== ENCOUNTER 2019-05-23 09:45 | Emergency (ER) | payer OTHER, SELFPAY ==
--- NOTE | 2019-05-23 10:25 | ED.EXTPRO ---
HPI - Extremity Problem General Chief complaint: Extremity Problem,Nontraumatic Stated complaint: Hurt her left ankle Time Seen by Provider: 05/23/19 09:57 Source: patient Mode of arrival: Ambulatory Limitations: no limitations History of Present Illness HPI Narrative: The patient comes emergency department complaining left ankle pain that began on its own about 1 week injury. patient states it feels same as when she had fractured her other ankle some years ago. Patient states, however, that she had a distinct injury in this case. Patient does not have any known disorder. She does not have RA or lupus as far she knows. Patient states she is otherwise healthy. No fevers. No other joint aches. Patient states that she does have a distant history of fibromyalgia, though she has not had any problems with this in the last few years. Patient denies being on any medications for fibromyalgia currently. Patient states the pain is bad enough that it is hard for her to bear weight on the ankle. No other complaints at this time she states she has taken Tylenol, but this has not helped. Related Data Home Medications Medication Instructions Recorded Confirmed prenat.vits,chu,ywp-auwq-cdjss 1 tab PO DAILY 06/18/18 05/23/19 Previous Rx's Medication Instructions Recorded breast pump #1 each 10/03/18 Breast Pump replacement Parts, #1 ea 03/20/19 Tubing, and Supplies Allergies Allergy/AdvReac Type Severity Reaction Status Date / Time adhesive AdvReac Verified 04/26/19 09:21 latex AdvReac Verified 04/26/19 09:21 nickel AdvReac Verified 04/26/19 09:21 Review of Systems Constitutional Constitutional: Denies chills, Denies fatigue, Denies fever(s), Denies frequent falls, Denies lethargy and Denies weakness Eyes Eyes: Denies change in vision, Denies eye discharge, Denies irritation and Denies loss of vision ENT Ears, Nose, Mouth, and Throat: Denies change in voice, Denies dizziness, Denies neck pain, Denies sore throat and Denies throat swelling Cardiovascular Cardiovascular: Denies chest pain, Denies irregular heart rhythm, Denies lightheadedness, Denies palpitations, Denies dyspnea, Denies dyspnea on exertion and Denies orthopnea Respiratory Respiratory: Denies cough, Denies dyspnea, Denies dyspnea on exertion and Denies wheezing Gastrointestinal Gastrointestinal: Denies abdominal pain, Denies change in bowel habits, Denies diarrhea, Denies nausea and Denies vomiting Genitourinary Genitourinary: Denies hematuria, Denies flank pain, Denies urinary incontinence and Denies urinary urgency Musculoskeletal Musculoskeletal: Denies back pain, Denies muscle weakness, Denies neck pain, Denies numbness and Denies tingling Comments: Left ankle pain Integumentary/Breasts Skin/Breast: Denies pruritus, Denies erythema, Denies rash and Denies wounds Neurologic Neurologic: Denies behavioral changes, Denies confusion, Denies dizziness, Denies frequent falls, Denies loss of vision, Denies numbness, Denies tingling and Denies weakness Psychiatric Psychiatric: Denies anxiety, Denies behavioral changes, Denies confusion, Denies depression, Denies homicidal ideation and Denies suicidal ideation Endocrine Endocrine: Denies fatigue, Denies flushing and Denies palpitations Hematologic/Lymphatic Hematologic/Lymphatic: Denies easy bruising Allergic/Immunologic Allergic/Immunologic: Denies urticaria, Denies throat swelling and Denies wheezing Patient History Medical History Dysplastic nevi (Chronic) Fibromyalgia (Chronic) IUD (intrauterine device) in place (Acute) Surgical History H/O local excision of skin lesion (Resolved) Social History Smoking Status: Never smoker Social History Smoking Status: Never smoker alcohol intake frequency: 0-2 drinks per day Substance Use Type: does not use Exam Initial Vital Signs Initial Vital Signs: Vital Signs Temperature 98.1 F 05/23/19 10:32 Pulse Rate 82 05/23/19 10:32 Respiratory Rate 16 05/23/19 10:32 Blood Pressure 117/81 05/23/19 10:32 Pulse Oximetry 95 05/23/19 10:32 Const General: cooperative and well developed Nutritional Appearance: well nourished Orientation: alert, awake, oriented x3 and not confused HENIN Head: normocephalic and atraumatic Ears: external ears normal Nose: external nose normal and No nasal discharge Face and sinus: face symmetric and No dry mucous membranes Mouth: oral mucosae normal and moist mucous membranes Teeth and gingiva: dentition normal Eyes General: appearance normal, both eyes and all related structures Eyelids: eyelids normal Conjunctivae: conjunctivae normal Sclera: sclerae normal Pupils: PERRL EOM: EOM intact bilaterally Neck Neck: normal visual inspection and JVD Chest Chest: normal inspection of the chest Resp Effort & Inspection: normal respiratory effort, able to speak in complete sentences, no respiratory distress and no use of accessory muscles Cardio Pulses: normal peripheral pulses GI Inspection: non-distended Palpation: soft, no hepatosplenomegaly, No guarding, No pulsatile mass and No tender Auscultation: normal bowel sounds Back/Spine/Pelvis Back: No CVA tenderness Cervical Spine: cervical ROM normal and No pain with cervical ROM Thoracic/Lumbar Spine: thoracic and lumbar spine normal to inspection Skin General: no rashes or lesions noted, No jaundice and No petechiae Neuro General: alert, awake, oriented x3 and no focal motor deficits Speech: speech normal Motor: muscle tone normal throughout Sensory Exam: no sensory deficits noted Extrem General: full ROM, no clubbing, cyanosis or edema, no pedal edema and no calf tenderness Psych Appearance: well kempt Mental Status: mental status grossly normal Attitude: cooperative Thought Content: normal and suicidality Judgment: judgment good Course Course Course Narrative: Patient was worked up inflammatory markers and x-ray of the ankle, all of which were negative. I have discussed with the patient that most likely, her symptoms represent temporary inflammation, and will resolve on their own. The patient begins to have trouble with other joints, then she will need to follow up her primary doctor to determine whether a systemic condition is present. At this point in time, the patient is afebrile and well-appearing, and she is stable for discharge home. We have discussed the usual indications for return. Orders Ordered: Discontinued Medications Ibuprofen (Advil) 800 mg PO NOW ONE Stop: 05/23/19 10:47 Last Admin: 05/23/19 11:00 Dose: 800 mg Documented by: TOBIAS Prednisone (Deltasone) 40 mg PO NOW ONE Stop: 05/23/19 10:47 Last Admin: 05/23/19 11:00 Dose: 40 mg Documented by: TOBIAS MDM - Extremity (Nontraumatic) Medical Records Attestation: I reviewed the patient's medical records. Lab Data Labs: Lab Results 05/23/19 05/23/19 Range/Units 10:45 10:45 ESR 13 (0-20) MM/HR C-Reactive Protein 0.5 (<1.0) mg/dL Imaging Data Chest x-ray: Radiologist's impression: PROCEDURE: XR ANKLE LT MIN 3V INDICATIONS: ankle pain, nontraumatic TECHNIQUE: 3 views of the ankle were acquired. COMPARISON: None. FINDINGS: Bones: No fractures or dislocations. Ankle mortise is normally aligned. No suspicious bony lesions. Soft tissues: No tibiotalar joint effusion. Achilles tendon appears normal. IMPRESSION: No acute ankle fracture or dislocation. Ankle mortise is congruent. Dictated by: Srikanth Donis M.D. on 05/23/2019 at 11:36 Approved by: Srikanth Donis M.D. on 05/23/2019 at 11:36 Discharge Plan Departure Patient Disposition: Home Clinical Impression: Acute ankle pain Qualifiers: Laterality: left Qualified Code(s): M25.572 - Pain in left ankle and joints of left foot Discharge Date/Time: 05/23/19 12:40 Instructions: DI for Ankle Pain Activity Restrictions/Additional Instructions: Your x-ray series looks good. Your inflammatory markers are normal. Most likely pain from normal wear and tear or normal activity that caused a temporary flare-up in your ankle. Most likely, this will resolve on its own. Please follow up in primary care for further concerns in this regard. You may take ibuprofen as needed for the pain. Prescriptions: No Action (DME) Breast Pump replacement Parts, Tubing, and Supplies Qty: 1 RF: 0 prenat.vits,chu,weg-fajb-lcyrp tablet 1 tab PO DAILY RF: 0 (DME) breast pump [Pump In Style Advanced] device See Dose Instructions .ROUTE .MEDSUPPLY Qty: 1 RF: 0 Referrals: Marlene Hoskins MD [Primary Care Provider] -
[2019-05-23 10:32] VITALS: BP 117/81; PULSE 82; RESP 16; TEMP 36.7; O2SAT 95
--- NOTE | 2019-05-23 10:34 | DI.RAD.S_ITS ---
PROCEDURE: XR ANKLE LT MIN 3V INDICATIONS: ankle pain, nontraumatic TECHNIQUE: 3 views of the ankle were acquired. COMPARISON: None. FINDINGS: Bones: No fractures or dislocations. Ankle mortise is normally aligned. No suspicious bony lesions. Soft tissues: No tibiotalar joint effusion. Achilles tendon appears normal. IMPRESSION: No acute ankle fracture or dislocation. Ankle mortise is congruent. Dictated by: Srikanth Donis M.D. on 05/23/2019 at 11:36 Approved by: Srikanth Donis M.D. on 05/23/2019 at 11:36
[2019-05-23] MEDS: predniSONE 20 MG TABLET 40 MG PO (11:00)
[2019-05-23] MEDS: IBUPROFEN 400 MG TABLET 800 MG PO (11:00)
[2019-05-23 11:13] LABS: C-Reactive Protein Quant 0.5 mg/dL (<1.0)
[2019-05-23 11:31] LABS: Erythrocyte Sedimentation Rate 13 MM/HR (0-20)
[2019-05-23 12:22] VITALS: BP 110/80; PULSE 64; RESP 16; O2SAT 96
[2019-05-23 12:40] VITALS: BP 114/81; PULSE 65; RESP 16; O2SAT 97
== END 2019-05-23 12:40 | disposition home or self-care (01) ==
PROVIDERS: Emergency Provider Emergency Medicine; PCP Obstetrics & Gynecology
DX: M25.572 Pain in left ankle and joints of left foot (principal)
CPT/HCPCS: 36415; 73610; 85651; 86140; 99282; 99284

== ENCOUNTER 2019-06-29 07:49 | Emergency (ER) | payer OTHER, SELFPAY ==
[2019-06-29 08:00] VITALS: BP 128/90; PULSE 70; RESP 18; TEMP 36.8; O2SAT 100
--- NOTE | 2019-06-29 08:04 | ED.UPPEXIN ---
HPI - Extremity Injury (Upper) General Chief Complaint: Extremity Injury, Upper Stated Complaint: left wrist injury x1 month Time Seen by Provider: 06/29/19 08:02 Source: patient Mode of arrival: Ambulatory History of Present Illness HPI narrative: Patient is a 28-year-old female who presents with left wrist pain ongoing for about 1 month. She denies any fall or trauma. She has no numbness or tingling. However the pain is progressively getting worse. She is a new mom baby is about 5-month-old she has been breast-feeding. She has been trying to get back to the gym and working out however not successful. She was wearing a splint for brief time she said did not help much. She has no weakness. She does not have a primary care physician MD complaint: injury to: left and wrist Onset (ago): month(s) (1) Related Data Home Medications Medication Instructions Recorded Confirmed prenat.vits,chu,shh-pdjl-xpceg 1 tab PO DAILY 06/18/18 05/23/19 Previous Rx's Medication Instructions Recorded breast pump #1 each 10/03/18 Breast Pump replacement Parts, #1 ea 03/20/19 Tubing, and Supplies Allergies Allergy/AdvReac Type Severity Reaction Status Date / Time adhesive AdvReac Verified 04/26/19 09:21 latex AdvReac Verified 04/26/19 09:21 nickel AdvReac Verified 04/26/19 09:21 Review of Systems Review of Systems Narrative: GENERAL: Denies chills,fever HEENT: Denies throat pain RESPIRATORY: Denies dyspnea, cough, wheezing CARDIOVASCULAR: Denies chest pain, palpitations GASTROINTESTINAL: Denies nausea, vomiting MUSCULOSKELETAL: See HPI SKIN: No rash, no laceration, no pruritus NEUROLOGIC: Denies weakness, dizziness, headache, numbness 8 point review of systems is negative except for those stated above and HPI Patient History Medical History Dysplastic nevi (Chronic) Fibromyalgia (Chronic) IUD (intrauterine device) in place (Acute) Surgical History H/O local excision of skin lesion (Resolved) Social History Smoking Status: Never smoker alcohol intake frequency: 0-2 drinks per day Substance Use Type: does not use Exam Initial Vital Signs Initial Vital Signs: GENERAL: Well-appearing, well-nourished and in no acute distress. CARDIOVASCULAR: peripheral pulses in tact, cap refill <2 sec RESPIRATORY: No respiratory distress, speaks in full sentences without difficulty EXTREMITIES: Normal range of motion, no clubbing or edema. Neurovascularly intact. Left wrist: No gross bony deformity strong distal radial pulse intact. Slight pain to palpation on the radial side no swelling appreciated NEUROLOGICAL: Cranial nerves II through XII grossly intact. Normal gait and speech. SKIN: Warm, dry, no petechiae, no rashes or lesions. Course Orders Ordered: Discontinued Medications Ibuprofen (Advil) 800 mg PO NOW ONE Stop: 06/29/19 08:03 Discharge Plan Departure Patient Disposition: Home Clinical Impression: Left wrist sprain Qualifiers: Encounter type: initial encounter Qualified Code(s): S63.502A - Unspecified sprain of left wrist, initial encounter Instructions: DI for Wrist Sprain Activity Restrictions/Additional Instructions: *You have been diagnosed with left wrist sprain *What to do: Increase activity as tolerated recommend wearing brace throughout the day while active. You may require physical therapy-which can be ordered by her PCP *Continue to take medications as directed Ibuprofen 800 mg every 8 hours if needed for [id number] pain *Follow up with your primary care provider in 2-3 days *Return to ER if you should have weakness in hand, increased pain or any new, worsening or concerning symptoms Prescriptions: No Action (DME) Breast Pump replacement Parts, Tubing, and Supplies Qty: 1 RF: 0 prenat.vits,chu,kms-byuy-dfsjw tablet 1 tab PO DAILY RF: 0 (DME) breast pump [Pump In Style Advanced] device See Dose Instructions .ROUTE .MEDSUPPLY Qty: 1 RF: 0 Referrals: [facility] [Outside]
[2019-06-29] MEDS: IBUPROFEN 400 MG TABLET 800 MG PO (08:12)
== END 2019-06-29 08:23 | disposition home or self-care (01) ==
PROVIDERS: Emergency Provider Emergency Medicine
DX: S63.502A Unspecified sprain of left wrist, initial encounter (principal)
CPT/HCPCS: 99282